=== PATIENT | female | born 1990 | race American Indian/Alaskan Native ===

== ENCOUNTER 2017-03-03 15:31 | Outpatient (CLI) | payer BC, MEDICAID ==
[2017-03-03] MEDS ORDERED: BOOSTRIX IM ONE (20:27)
--- NOTE | 2017-03-03 20:28 | Emergency Department Report ---
ED General Adult HPI - General Chief complaint: Extremity Injury, Lower Stated complaint: PAIN RT SIDE THIGH Time Seen by Provider: 03/03/17 20:16 Source: patient, RN notes reviewed Mode of arrival: Ambulatory Limitations: No Limitations - History of Present Illness Initial comments: This is a 27-year-old female. She was previously unknown to me.. MEDIA SERVICES COORDINATOR: "My MEDIA SERVICES COORDINATOR." 1, para 0, last menstrual period in September, no chronic medical conditions, up-to-date with vaccinations with the exception of tetanus, reports compliance with outpatient care. The patient presents to the ER after mechanical fall. The patient reports that she missed a stair, landed on her right hip and right elbow. She did not hit her head. She did not hit her neck. She has no extremity weakness or numbness. She has no chest pain or abdominal pain. She has no saddle anesthesia. She has no bladder or bowel retention or incontinence. She has a scrape to the right elbow. She reports that her right posterior hamstring feels like a "charley horse." The pain is achy, increases with palpation and range of motion, decreases with rest, it does not radiate anywhere. -: Sudden, hour(s) Location: right, upper extremity, lower extremity Quality: aching Consistency: intermittent Improves with: rest Worsens with: movement Associated Symptoms: denies other symptoms - Related Data Home Medications Medication Instructions Recorded Confirmed Last Taken Norgestimate-Ethinyl Estradiol 1 tab PO DAILY 07/23/15 07/23/15 07/22/15 [Sprintec 28 Day Tablet] Previous Rx's Medication Instructions Recorded Last Taken Type Naproxen [Naprosyn TAB] 500 mg PO BID PRN #12 tablet 07/23/15 Unknown Rx Sulfamethoxazole/Trimethoprim 1 each PO BID #6 tablet 07/23/15 Unknown Rx [Bactrim DS TAB] Allergies Allergy/AdvReac Type Severity Reaction Status Date / Time No Known Allergies Allergy Unverified 07/23/15 11:22 ED Review of Systems ROS: Stated complaint: PAIN RT SIDE THIGH Other details as noted in HPI Constitutional: denies: malaise Eyes: denies: vision change ENT: denies: epistaxis Respiratory: denies: cough Cardiovascular: denies: chest pain Gastrointestinal: denies: abdominal pain Genitourinary: denies: urgency Musculoskeletal: arthralgia, myalgia. denies: back pain Skin: lesions Neurological: denies: headache, weakness ED Past Medical Hx - Past Medical History Previous Medical History?: No - Social History Smoking Status: Current Some Day Smoker Substance Use Type: None - Medications Home Medications: Home Medications Medication Instructions Recorded Confirmed Last Taken Type Naproxen [Naprosyn TAB] 500 mg PO BID PRN #12 tablet 07/23/15 Unknown Rx Norgestimate-Ethinyl Estradiol 1 tab PO DAILY 07/23/15 07/23/15 07/22/15 History [Sprintec 28 Day Tablet] Sulfamethoxazole/Trimethoprim 1 each PO BID #6 tablet 07/23/15 Unknown Rx [Bactrim DS TAB] ED Physical Exam - General Limitations: No Limitations General appearance: alert, in no apparent distress - Head Head exam: Present: atraumatic, normocephalic - Eye Eye exam: Present: normal appearance, PERRL, EOMI. Absent: nystagmus - ENT ENT exam: Present: normal exam, normal orophraynx, mucous membranes moist, normal external ear exam - Neck Neck exam: Present: normal inspection, full ROM. Absent: tenderness, meningismus - Respiratory Respiratory exam: Present: normal lung sounds bilaterally. Absent: respiratory distress, wheezes, rales, rhonchi, stridor, chest wall tenderness - Cardiovascular Cardiovascular Exam: Present: regular rate, normal rhythm, normal heart sounds. Absent: bradycardia, tachycardia, irregular rhythm, systolic murmur, diastolic murmur, rubs, gallop - GI/Abdominal GI/Abdominal exam: Present: soft, normal bowel sounds. Absent: distended, tenderness, guarding, rebound, rigid, pulsatile mass - Extremities Exam Extremities exam: Present: full ROM, tenderness (there is no abrasion to the olecranon of the elbow. There is no laceration. The right elbow olecranon is minimally tender. The compartments are soft. There is full range of motion of the bilateral upper and lower extremity. There are 2+ pulses noted in the bilateral upper and lower extremities.), normal capillary refill, other (the right posterior hamstring is minimally tender. The compartments are soft. The pelvis is stable. The patient walks with a steady gait.). Absent: pedal edema , joint swelling, calf tenderness - Back Exam Back exam: Present: normal inspection, full ROM. Absent: tenderness, CVA tenderness (R), CVA tenderness (L), muscle spasm, paraspinal tenderness, vertebral tenderness - Neurological Exam Neurological exam: Present: alert, oriented X3, normal gait, other (Extraocular movements intact. Tongue midline. No facial droop. Facial sensation intact to light touch in the V1, V2, V3 distribution bilaterally. 5 and 5 strength in 4 extremities.. Sensation is intact to light touch in 4 extremities.). Absent : motor sensory deficit - Psychiatric Psychiatric exam: Present: normal affect, normal mood - Skin Skin exam: Present: warm, dry, intact, normal color. Absent: rash ED Course Vital Signs 03/03/17 16:14 Temperature 98.5 F Pulse Rate 97 H Respiratory 16 Rate Blood Pressure 109/71 O2 Sat by Pulse 100 Oximetry - Reevaluation(s) Reevaluation #1: 03/03/17 21:44 Differential diagnosis: Elbow abrasion, elbow contusion, chip fracture, incidental , mechanical fall Assessment and plan: 27-year-old female status post mild fall mechanism. She is afebrile with reassuring vital signs. She has a GCS of 15, with an NIH score of 0. She is given a tetanus vaccination. I have had an extensive discussion with the patient, and her mother. The patient and myself discussed the risks, benefits, alternatives of obtaining x-ray of the elbow. I told her that it is possible that she may have a chip fracture, but even if that were the case, the management will be expectant. The patient declines an x-ray at a concern for radiation, and I think that this is reasonable. The patient and mother are given instructions on how to care for the wound. I have then discussed the case with the meal attendant oracle security consultant, Dr. David, who accepts the patient as a transfer to labor and delivery for monitoring given mechanical fall with the examination component. The patient and her mother had all their questions answered to their satisfaction. At this point in time, there is no immediate medical contraindication to observation in the labor and delivery unit. ED Medical Decision Making - Lab Data Vital Signs 03/03/17 03/03/17 16:14 20:20 Temperature 98.5 F Pulse Rate 97 H 92 H Respiratory 16 18 Rate Blood Pressure 109/71 Blood Pressure 120/81 [Left] O2 Sat by Pulse 100 99 Oximetry Critical care attestation.: If time is entered above; I have spent that time in minutes in the direct care of this critically ill patient, excluding procedure time. ED Disposition Clinical Impression: , Fall Disposition: DISCHARGED TO HOME OR SELFCARE Is pt being admited?: No Does the pt Need Aspirin: No Condition: Good
[2017-03-03 20:58] VITALS: BP 120/81
== END 2017-03-03 22:41 | disposition home or self-care (01) ==
LOC: ED 15:31 → TRG 15:31 → EDSTATUS 21:14 → TRG 21:25
PROVIDERS: ATTEND Obstetrics & Gynecology
DX: O26.892 Other specified pregnancy related conditions, second trimester (principal); M79.651 Pain in right thigh; Z3A.23 23 weeks gestation of pregnancy
CPT/HCPCS: 59025; 90715

== ENCOUNTER 2017-03-08 09:45 | Emergency (ER) | payer MEDICAID ==
[2017-03-08 09:54] VITALS: BP 115/78
[2017-03-08] MEDS ORDERED: TYLENOL PO ONE (12:25)
--- NOTE | 2017-03-08 12:39 | Emergency Department Report ---
ED Fall HPI - General Chief Complaint: Extremity Injury, Lower Stated Complaint: SHARP PAINS IN RT BUTT CHEEK/THIGH Source: patient Mode of arrival: Ambulatory Limitations: No Limitations - History of Present Illness Initial Comments: 27 year old female presents to ED after fall 1 week ago. patient states she missed a step and fell down a couple of stairs landing on her right leg. patient was seen in ED on 03/03/2017 for same complaint and patient and ED provider agreed that imaging was unnecessary at time of visit on 03/03. Patient is 25 weeks and states that upon her previous ED visit the fetus was unharmed and doing well. patient was told to follow up with [facility] for further evaluation and for management post fall and states she has returned to ED due to needing a work excuse and right upper leg pain that has been constant after her fall. patient states that right leg pain radiates from her right thigh to her right buttock. Patient is stable, neurologically intact and in no acute distress. I have spoken with patient about the risks of radiation due to her current and patient has refused imaging and understands she needs to follow up with her [facility] on Friday when their office opens. The patient and I have spoken and agreed that imaging is unnecessary due to low clinical suspicion of any acute process including fracture or dislocation of her right leg/hip. patient will be given tylenol and work excuse in order to schedule appointment with [facility] for pain management. Patient reports no new falls, no pain in abdomen or vaginal bleeding since last ED visit. 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 denies: headache, neck pain, numbness, weakness, chest paint, shortness of breath, abdominal pain, unable to walk, lightheaded, confusion - Related Data Home Medications Medication Instructions Recorded Confirmed Last Taken Norgestimate-Ethinyl Estradiol 1 tab PO DAILY 07/23/15 07/23/15 07/22/15 [Sprintec 28 Day Tablet] Previous Rx's Medication Instructions Recorded Last Taken Type Naproxen [Naprosyn TAB] 500 mg PO BID PRN #12 tablet 07/23/15 Unknown Rx Sulfamethoxazole/Trimethoprim 1 each PO BID #6 tablet 07/23/15 Unknown Rx [Bactrim DS TAB] Allergies Allergy/AdvReac Type Severity Reaction Status Date / Time No Known Allergies Allergy Unverified 07/23/15 11:22 ED Review of Systems ROS: Stated complaint: SHARP PAINS IN RT BUTT CHEEK/THIGH Other details as noted in HPI Constitutional: denies: chills, fever Eyes: denies: eye pain, eye discharge, vision change ENT: denies: ear pain, throat pain Respiratory: denies: cough, shortness of breath, wheezing Cardiovascular: denies: chest pain, palpitations Endocrine: no symptoms reported Gastrointestinal: denies: abdominal pain, nausea, diarrhea Genitourinary: denies: urgency, dysuria, discharge Musculoskeletal: arthralgia. denies: back pain, joint swelling Skin: denies: rash, lesions Neurological: denies: headache, weakness, paresthesias Psychiatric: denies: anxiety, depression Hematological/Lymphatic: denies: easy bleeding, easy bruising ED Past Medical Hx - Past Medical History Previous Medical History?: Yes Hx Hypertension: No Hx Diabetes: No Hx Deep Vein Thrombosis: No Hx Renal Disease: No Hx Sickle Cell Disease: No Hx Seizures: No Hx Asthma: No Additional medical history: Right leg pain - Surgical History Past Surgical History?: No - Social History Smoking Status: Current Every Day Smoker Substance Use Type: Prescribed - Medications Home Medications: Home Medications Medication Instructions Recorded Confirmed Last Taken Type Naproxen [Naprosyn TAB] 500 mg PO BID PRN #12 tablet 07/23/15 Unknown Rx Norgestimate-Ethinyl Estradiol 1 tab PO DAILY 07/23/15 07/23/15 07/22/15 History [Sprintec 28 Day Tablet] Sulfamethoxazole/Trimethoprim 1 each PO BID #6 tablet 07/23/15 Unknown Rx [Bactrim DS TAB] ED Physical Exam - General Limitations: No Limitations General appearance: alert, in no apparent distress - Head Head exam: Present: atraumatic, normocephalic - Eye Eye exam: Present: normal appearance - ENT ENT exam: Present: mucous membranes moist - Neck Neck exam: Present: normal inspection - Respiratory Respiratory exam: Present: normal lung sounds bilaterally. Absent: respiratory distress - Cardiovascular Cardiovascular Exam: Present: regular rate, normal rhythm, normal heart sounds. Absent: systolic murmur, diastolic murmur, rubs, gallop - GI/Abdominal GI/Abdominal exam: Present: soft, distended, normal bowel sounds. Absent: tenderness - Extremities Exam Extremities exam: Present: normal inspection - Expanded Lower Extremity Exam Right Hip exam: Present: normal inspection, full ROM. Absent: tenderness, swelling, shortening Upper Leg exam: Present: normal inspection, full ROM. Absent: tenderness, swelling, abrasion, laceration, ecchymosis, deformity, dislocation, erythema Knee exam: Present: normal inspection, full ROM. Absent: tenderness Lower Leg exam: Present: normal inspection, full ROM. Absent: tenderness Ankle exam: Present: normal inspection, full ROM. Absent: tenderness Foot/Toe exam: Present: normal inspection, full ROM Neuro vascular tendon exam: Present: no vascular compromise Gait: Positive: observed and normal - Back Exam Back exam: Present: normal inspection, full ROM. Absent: tenderness - Neurological Exam Neurological exam: Present: alert, oriented X3, CN II-XII intact, normal gait, reflexes normal, other (normal strength bilaterally in lower extremeties) - Psychiatric Psychiatric exam: Present: normal affect, normal mood - Skin Skin exam: Present: warm, dry, intact, normal color. Absent: rash ED Course Vital Signs 03/08/17 03/08/17 03/08/17 09:49 12:49 13:18 Temperature 98.3 F Pulse Rate 100 H 87 Respiratory 20 18 Rate Blood Pressure 115/78 O2 Sat by Pulse 100 Oximetry ED Medical Decision Making - Medical Decision Making 27 year old female presents to ED post fall 1 week ago. patient was seen in ED for similar complaint on 03/03/2017 and did not recieve imaging due to risks of radiation to fetus. Patient continues to refuse imaging due to risk of radiation to fetus and states she needs work excuse to schedule appointment with her [facility]. Upon palpation with female cardiovascular specialist in room, patient has mild tenderness to gluteus trever muscle with no bruising or redness present. patient was given tylenol and had decreased pain after medication. Again I have stressed to patient that imaging is unnecessary at this time due to my belief that pain is muscoskeletal in nature. Patient will be given work excuse to follow up with [facility] next week and will continue to take tylenol for pain for safety to fetus. Patient is stable, neurologically intact and in no acute distress. Critical care attestation.: If time is entered above; I have spent that time in minutes in the direct care of this critically ill patient, excluding procedure time. ED Disposition Clinical Impression: Fall (on) (from) other stairs and steps, subsequent encounter Fall Qualifiers: Encounter type: sequela Qualified Code(s): W19.XXXS - Unspecified fall, sequela Disposition: DISCHARGED TO HOME OR SELFCARE Is pt being admited?: No Does the pt Need Aspirin: No Condition: Stable Instructions: (ED), Fall Prevention (ED) Additional Instructions: Please follow up with [facility] for pain management on Friday of next week. Referrals: HALLIE GRAY JR, MD [Primary Care Provider] - 2-3 Days Forms: Work/School Release Form(ED)
== END 2017-03-08 13:19 | disposition home or self-care (01) ==
LOC: ED 09:45
DX: O9A.212 Injury, poisoning and certain other consequences of external causes complicating pregnancy, second trimester (principal); M79.604 Pain in right leg; O99.332 Smoking (tobacco) complicating pregnancy, second trimester; Z3A.24 24 weeks gestation of pregnancy; W18.30XA Fall on same level, unspecified, initial encounter; Y93.9 Activity, unspecified; Y92.9 Unspecified place or not applicable; Y99.9 Unspecified external cause status
CPT/HCPCS: 99282

== ENCOUNTER 2017-03-25 17:05 | Outpatient (CLI) | payer MEDICAID ==
[2017-03-25] MEDS ORDERED: LACTATED RINGERS 500 ML IV ONE (17:37)
[2017-03-25 18:19] VITALS: BP 101/63
[2017-03-25 18:33] LABS: Bilirubin,Urine NEG (Negative); Blood,Urine NEG (Negative); Ketones,Urine 80 mg/dL (Negative); Leukocyte Esterase,Urine NEG (Negative); Mucus,Urine 1+ /HPF; Nitrite,Urine NEG (Negative); Protein,Urine <15 mg/dL mg/dL (Negative); RBC,Urine < 1.0 /HPF (0.0-6.0); Urobilinogen,Urine < 2.0 mg/dL (<2.0)
== END 2017-03-25 20:05 | disposition home or self-care (01) ==
LOC: TRG 17:05
PROVIDERS: ATTEND Obstetrics & Gynecology
DX: O47.02 False labor before 37 completed weeks of gestation, second trimester (principal); Z3A.27 27 weeks gestation of pregnancy
CPT/HCPCS: 59025; 81001

== ENCOUNTER 2017-05-03 08:12 | Outpatient (CLI) | payer MEDICAID ==
[2017-05-03] MEDS ORDERED: LACTATED RINGERS 500 ML IV ONE (08:26)
[2017-05-03 08:37] VITALS: BP 121/76
[2017-05-03 08:42] LABS: Urine Drugs of Abuse Note Disclamer
[2017-05-03 08:52] LABS: Bacteria,Urine 1+ /HPF (Negative); Bilirubin,Urine NEG (Negative); Blood,Urine MOD (Negative); Ketones,Urine NEG (Negative); Leukocyte Esterase,Urine LG (Negative); Nitrite,Urine NEG (Negative); Protein,Urine <15 mg/dL mg/dL (Negative); Urobilinogen,Urine < 2.0 mg/dL (<2.0)
[2017-05-03] MEDS ORDERED: MACROBID PO ONE (09:22)
[2017-05-03] MEDS ORDERED: LACTATED RINGERS 1,000 ML IV ONE (09:26)
== END 2017-05-03 10:07 | disposition home or self-care (01) ==
LOC: TRG 08:12
PROVIDERS: ATTEND Obstetrics & Gynecology
DX: O99.333 Smoking (tobacco) complicating pregnancy, third trimester (principal); Z3A.33 33 weeks gestation of pregnancy
CPT/HCPCS: 36415; 59025; 80307; 81001; 82731; 87086; 96360; 96361; J7120

== ENCOUNTER 2017-06-16 01:16 | Inpatient (IN) | payer MEDICAID ==
[2017-06-16] MEDS ORDERED: ePHEDrine SULFATE IV PRN (01:57)
[2017-06-16] MEDS ORDERED: MINERAL OIL PO PRN (01:57)
[2017-06-16] MEDS ORDERED: SUBLIMAZE IV PRN (01:57)
[2017-06-16] MEDS ORDERED: STADOL IV PRN (01:57)
[2017-06-16] MEDS ORDERED: PITOCin/NS 20 UNIT/1000ML DRIP 20 UNITS/1,000 ML BAG IV SCH ×2 (02:00→18:00)
[2017-06-16] MEDS: LACTATED RINGERS 1,000 ML IV SCH ×3 (02:15→07:33)
[2017-06-16 02:22] LABS: Hematocrit 34.6 % (30.3-42.9); Hemoglobin 11.5 gm/dl (10.1-14.3); Mean Corpuscular HGB Conc 33 % (30-34); Mean Corpuscular Hemoglobin 29 pg (28-32); Mean Corpuscular Volume 88 fl (79-97); Platelet Count 190 K/mm3 (140-440); Red Blood Count 3.95 M/mm3 (3.65-5.03); Red Cell Distribution Width 14.2 % (13.2-15.2); White Blood Count 8.7 K/mm3 (4.5-11.0)
[2017-06-16] MEDS ORDERED: PITOCin/NS 30 UNIT/500ML 30 UNITS/500 ML BAG IV SCH (06:00)
--- NOTE | 2017-06-16 06:17 | History and Physical Report ---
History of Present Illness Date of examination: 06/16/17 (pt admited for labor; having some labile BP) Date of admission: 06/16/17 02:13 History of present illness: EDC Confirmation: 06/20/2017 Gestational Age: 7 5/7 weeks Past History : 1 Past Medical History: ovarian cyst Past Surgical History: Reviewed history from 01/05/2009 and no changes required: negative Past Medical History Anesthesia Complications: negative Anemia: negative Autoimmune Disorder: negative Bleeding Disorder: negative Blood Transfusions: negative Breast Disease: negative Diabetes: negative Heart Disease: negative Hypertension: negative Hepatitis/Liver Disease: negative Kidney Disease/UTI: negative Neurologic/Epilepsy/Migraines: negative Phlebitis/Varicosities: negative Psychiatric: negative Pulmonary Disease/Asthma: negative Thyroid Disease: negative Hospitalizations: negative Surgery (Non-service order clerk): negative Abnormal PAP: negative AMANUEL Exposure: negative Infertility: negative Uterine Anomaly: negative Uterine Surgery (not C/S): negative Other Gynecologic Problems: negative Social Hx: Patient is single Smoking History: Patient currently smokes every day. Infection History Hx of STD: chlamydia HIV Risk Eval: no Hepatitis B Risk Eval: low risk Personal hx. of genital herpes: no Partner hx. of genital herpes: no Rash, Viral, or Febrile illness since last LMP? no Varicella/Chicken Pox Status: Immunized TB Risk: no Genetic History Congenital Heart Defect: Mom: no Dad: no Po Disease: Mom: no Dad: no Thalassemia Mom: no Dad: no Neural Tube Defect Mom: no Dad: no Down's Syndrome Mom: no Dad: no Adolph-Sachs Mom: no Dad: no Sickle Cell Disease/Trait Mom: no Dad: no Hemophilia Mom: no Dad: no Muscular Dystrophy Mom: no Dad: no Cystic Fibrosis Mom: no Dad: no [place] Chorea Mom: no Dad: no Mental Retardation Mom: no Dad: no Fragile X Mom: no Dad: no Other Genetic/Chromosomal Disorder Mom: no Dad: no Child w/other defect Mom: no Dad: no Enviromental Exposures Xray Exposure: no Medication, drug, or alcohol use since LMP: no Chemical/Other Exposure: no Exposure to Cat Liter: no Hx of Parvovirus (Fifth Disease): no Occupational Exposure to Children: none FALSECurrent Allergies (reviewed today): No known allergies Laboratory Results Routine Urinalysis Leukocytes: negative Nitrite: negative Urobilinogen: negative Protein: negative Blood: negative Ketone: large (80) Bilirubin: negative Glucose: negative Urine HCG: positive Review of Systems General Denies fever, chills, sweats, anorexia, fatigue, weakness, malaise, weight loss and sleep disorder. Complains of nausea, vomiting and vaginal discharge. Denies headache, swelling of legs, abdominal pain, vaginal bleeding and contractions. Denies vaginal discharge, incontinence, dysuria, hematuria, urinary frequency, amenorrhea, menorrhagia, abnormal vaginal bleeding, pelvic pain, genital sores, decreased libido, painful periods, painful sex, urinary urgency, hot flashes, vaginal dryness, vaginal itching and vaginal odor. CV Denies chest pains, palpitations, syncope, dyspnea on exertion, orthopnea, PND and peripheral edema. Resp Denies cough, dyspnea at rest, excessive sputum, hemoptysis, wheezing and pleurisy. GI Denies nausea, vomiting, diarrhea, constipation, change in bowel habits, abdominal pain, melena, hematochezia, jaundice, gas/bloating, indigestion/ heartburn, dysphagia and odynophagia. Endo Denies cold intolerance, heat intolerance, polydipsia, polyphagia, polyuria and unusual weight change. Breast Denies left breast lump, right breast lump, nipple discharge, bloody discharge from nipple, breast pain, abnormal mammogram and breast enlargement. MS Denies back pain, joint pain, joint swelling, muscle cramps, muscle weakness, stiffness, arthritis, sciatica, restless legs, leg pain at night and leg pain with exertion. Derm Denies rash, itching, dryness and suspicious lesions. Neuro Denies paralysis, paresthesias, headache, seizures, tremors, vertigo, transient blindness, frequent falls, frequent headaches and difficulty walking. Psych Denies depression, anxiety, irritability and mood swings. Eyes Denies blurring, diplopia, irritation, discharge, vision loss, eye pain and photophobia. ENT Denies earache, ear discharge, tinnitus, decreased hearing, nasal congestion, nosebleeds, sore throat and hoarseness. Allergy Denies urticaria, allergic rash, hay fever and recurrent infections. Heme Denies abnormal bruising, bleeding and enlarged lymph nodes. 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 Vulva/Vagina: No lesions, normal BUS, normal rugae Cervix: No lesions; no cervical motion tenderness Uterus: normal size and position, midline, mobile Fundal Ht: 6-8 Adnexae: no masses or tenderness Rectovaginal: no masses or tenderness Past History - Obstetrical History Expected Date of Delivery: 06/20/17 Actual Gestation: 39 Week(s) 3 Day(s) : 1 Para: 0 Number of Living Children: 0 Medications and Allergies Allergies Allergy/AdvReac Type Severity Reaction Status Date / Time No Known Allergies Allergy Verified 03/25/17 17:37 Home Medications Medication Instructions Recorded Confirmed Last Taken Type Pnv with Ca,No.72/Iron/FA 1 tab PO QDAY 06/16/17 06/16/17 2 Weeks Ago History [ Plus Tablet] Active Meds: Active Medications Butorphanol Tartrate (Stadol) 2 mg IV Q2H PRN PRN Reason: Pain , Severe (7-10) Last Admin: 06/16/17 02:40 Dose: 2 mg Fentanyl (Sublimaze) 100 mcg IV Q2H PRN PRN Reason: Labor Pain Last Admin: 06/16/17 05:53 Dose: 100 mcg Lactated Ringer's (Lactated Ringers) 1,000 mls @ 125 mls/hr IV DIRECT WINNIE Last Admin: 06/16/17 05:54 Dose: 999 mls/hr Oxytocin/Sodium Chloride (Pitocin/Ns 20 Unit/1000ml Drip) 20 units in 1,000 mls @ 125 mls/hr IV DIRECT WINNIE Oxytocin/Sodium Chloride (Pitocin/Ns 30 Unit/500ml) 30 units in 500 mls @ 4 mls /hr IV Q30MIN WINNIE; 4 MILLIUNITS/MIN PRN Reason: Protocol Mineral Oil (Mineral Oil) 30 ml PO QHS PRN PRN Reason: Constipation - Vital Signs Vital signs: Vital Signs Pulse BP 77 166/98 06/16/17 01:17 06/16/17 01:17 Temp Pulse Resp BP Pulse Ox 98.5 F 82 18 148/84 98 06/16/17 01:24 06/16/17 05:48 06/16/17 05:53 06/16/17 05:48 06/16/17 03:31 - Physical Exam Breasts: Positive: deferred Cardiovascular: Regular rate, Normal S1, Normal S2 Lungs: Positive: Normal air movement Abdomen: Positive: normal appearance, soft, normal bowel sounds. Negative: distention, tenderness Genitourinary (Female): Positive: normal external genitalia Vulva: both: normal Vagina: Positive: normal moisture. Negative: discharge Cervix: Negative: lesion, discharge Uterus: Positive: normal size, normal contour Adnexa: both: normal Anus/Rectum: Positive: normal perianal skin, heme negative. Negative: rectal mass, hemorrhoids Extremities: Positive: normal Deep Tendon Reflex Grade: Normal +2 - Obstetrical FHR: category 1 Uterine Contraction Monitor Mode: External Cervical Dilatation: 5 (per RN) Cervical Effacement Percentage: 80 station: -2 Uterine Contraction Pattern: Regular Uterine Contraction Intensity: Moderate Results Result Diagrams: 06/16/17 02:06 All other labs normal. HBsAg Screen Negative Negative *1 Rubella Antibodies, IgG 2.16 index Immune >0.99 *2 Non-immune <0.90 Equivocal 0.90 - 0.99 Immune >0.99 ABO Grouping A *3 Rh Factor Positive *4 Please note: Prior records for this patient's ABO / Rh type are not available for additional verification. Antibody Screen Negative Negative *5 RPR Non Reactive Non Reactive *6 WBC 7.0 x10E3/uL 3.4-10.8 *7 RBC 4.39 x10E6/uL 3.77-5.28 *8 Hemoglobin 12.7 g/dL 11.1-15.9 *9 Hematocrit 40.8 % 34.0-46.6 *10 MCV 93 fL 79-97 *11 MCH 28.9 pg 26.6-33.0 *12 MCHC [L] 31.1 g/dL 31.5-35.7 *13 RDW 13.3 % 12.3-15.4 *14 Platelets 286 x10E3/uL 150-379 *15 Neutrophils 62 % *16 Lymphs 27 % *17 Monocytes 10 % *18 Eos 1 % *19 Basos 0 % *20 ! Immature Cells <No Reported Value> *21 Neutrophils (Absolute) 4.2 x10E3/uL 1.4-7.0 *22 Lymphs (Absolute) 1.9 x10E3/uL 0.7-3.1 *23 Monocytes(Absolute) 0.7 x10E3/uL 0.1-0.9 *24 Eos (Absolute) 0.1 x10E3/uL 0.0-0.4 *25 Baso (Absolute) 0.0 x10E3/uL 0.0-0.2 *26 ! Immature Granulocytes 0 % *27 ! Immature Grans (Abs) 0.0 x10E3/uL 0.0-0.1 *28 ! NRBC <No Reported Value> *29 Hematology Comments: <No Reported Value> *30 Tests: (3) Hemoglobin A1c (037820) ! Hemoglobin A1c 5.2 % 4.8-5.6 *33 Pre-diabetes: 5.7 - 6.4 Diabetes: >6.4 Glycemic control for adults with diabetes: <7.0 Tests: (4) HB Solu + Rflx [facility] (309208) Hemoglobin (Hgb) Solubility Negative Negative *34 Tests: (5) Panel [id number] ([id number]) HIV Screen 4th Generation wRfx Non Reactive Non Reactive *35 Tests: (6) HCV Ab w/Rflx to Verification (172697) ! HCV Ab <0.1 s/co ratio 0.0-0.9 *36 Tests: (7) Comment: ([id number]) ! Comment: [facility] *37 Non reactive HCV antibody screen is consistent with no HCV infection, unless recent infection is suspected or other evidence exists to indicate HCV infection. Assessment and Plan 27yo @ 39 weeks with cervical chg active labor Pt has had several BPs in the 140/80-90 [facility] labs ordered GBS negative is aware of pt admission. Pt sitting up at time of note for epidural Will eval once procedure is complete. All orders in EMR.
[2017-06-16] MEDS ORDERED: ZOFRAN IV PRN (06:52)
[2017-06-16] MEDS ORDERED: NARCAN 0.4 MG/1 ML IV PRN ×2 (06:52→17:41)
[2017-06-16] MEDS ORDERED: PHENERGAN PO PRN (06:52)
[2017-06-16] MEDS ORDERED: PHENERGAN PR PRN (06:52)
--- NOTE | 2017-06-16 06:52 | Anesthesia Consultation ---
Anesthesia Consult and Med Hx Date of service: 06/16/17 - Airway Anesthetic Teeth Evaluation: Good ROM Head & Neck: Adequate Mental/Hyoid Distance: Adequate Mallampati Class: Class II Intubation Access Assessment: Good - Pulmonary Exam CTA: Yes - Cardiac Exam Cardiac Exam: No Murmur - Pre-Operative Health Status ASA Pre-Surgery Classification: ASA2 Proposed Anesthetic Plan: Epidural - Pulmonary Hx Asthma: No COPD: No Hx Pneumonia: No - Cardiovascular System Hx Hypertension: No - Central Nervous System Hx Seizures: No Hx Psychiatric Problems: No - Endocrine Hx Renal Disease: No Hx End Stage Renal Disease: No Hx Hypothyroidism: No Hx Hyperthyroidism: No - Hematic Hx Anemia: No Hx Sickle Cell Disease: No - Other Systems Hx Alcohol Use: No
--- NOTE | 2017-06-16 06:55 | Progress Note ---
Assessment and Plan Pt comfortable with epidural SVE 8-9,100,-1 BBOW Pit @ 8 mu Re-eval as needed Anticipate delivery Subjective - Subjective Date of service: 06/16/17 (comfortable with epidural) Interval history: EDC Confirmation: 06/20/2017 Gestational Age: 7 5/7 weeks Past History : 1 Past Medical History: ovarian cyst Past Surgical History: Reviewed history from 01/05/2009 and no changes required: negative Past Medical History Anesthesia Complications: negative Anemia: negative Autoimmune Disorder: negative Bleeding Disorder: negative Blood Transfusions: negative Breast Disease: negative Diabetes: negative Heart Disease: negative Hypertension: negative Hepatitis/Liver Disease: negative Kidney Disease/UTI: negative Neurologic/Epilepsy/Migraines: negative Phlebitis/Varicosities: negative Psychiatric: negative Pulmonary Disease/Asthma: negative Thyroid Disease: negative Hospitalizations: negative Surgery (Non-contact centre supervisor): negative Abnormal PAP: negative AMANUEL Exposure: negative Infertility: negative Uterine Anomaly: negative Uterine Surgery (not C/S): negative Other Gynecologic Problems: negative Social Hx: Patient is single Smoking History: Patient currently smokes every day. Infection History Hx of STD: chlamydia HIV Risk Eval: no Hepatitis B Risk Eval: low risk Personal hx. of genital herpes: no Partner hx. of genital herpes: no Rash, Viral, or Febrile illness since last LMP? no Varicella/Chicken Pox Status: Immunized TB Risk: no Genetic History Congenital Heart Defect: Mom: no Dad: no Po Disease: Mom: no Dad: no Thalassemia Mom: no Dad: no Neural Tube Defect Mom: no Dad: no Down's Syndrome Mom: no Dad: no Adolph-Sachs Mom: no Dad: no Sickle Cell Disease/Trait Mom: no Dad: no Hemophilia Mom: no Dad: no Muscular Dystrophy Mom: no Dad: no Cystic Fibrosis Mom: no Dad: no [place] Chorea Mom: no Dad: no Mental Retardation Mom: no Dad: no Fragile X Mom: no Dad: no Other Genetic/Chromosomal Disorder Mom: no Dad: no Child w/other defect Mom: no Dad: no Enviromental Exposures Xray Exposure: no Medication, drug, or alcohol use since LMP: no Chemical/Other Exposure: no Exposure to Cat Liter: no Hx of Parvovirus (Fifth Disease): no Occupational Exposure to Children: none FALSECurrent Allergies (reviewed today): No known allergies Laboratory Results Routine Urinalysis Leukocytes: negative Nitrite: negative Urobilinogen: negative Protein: negative Blood: negative Ketone: large (80) Bilirubin: negative Glucose: negative Urine HCG: positive Review of Systems General Denies fever, chills, sweats, anorexia, fatigue, weakness, malaise, weight loss and sleep disorder. Complains of nausea, vomiting and vaginal discharge. Denies headache, swelling of legs, abdominal pain, vaginal bleeding and contractions. Denies vaginal discharge, incontinence, dysuria, hematuria, urinary frequency, amenorrhea, menorrhagia, abnormal vaginal bleeding, pelvic pain, genital sores, decreased libido, painful periods, painful sex, urinary urgency, hot flashes, vaginal dryness, vaginal itching and vaginal odor. CV Denies chest pains, palpitations, syncope, dyspnea on exertion, orthopnea, PND and peripheral edema. Resp Denies cough, dyspnea at rest, excessive sputum, hemoptysis, wheezing and pleurisy. GI Denies nausea, vomiting, diarrhea, constipation, change in bowel habits, abdominal pain, melena, hematochezia, jaundice, gas/bloating, indigestion/ heartburn, dysphagia and odynophagia. Endo Denies cold intolerance, heat intolerance, polydipsia, polyphagia, polyuria and unusual weight change. Breast Denies left breast lump, right breast lump, nipple discharge, bloody discharge from nipple, breast pain, abnormal mammogram and breast enlargement. MS Denies back pain, joint pain, joint swelling, muscle cramps, muscle weakness, stiffness, arthritis, sciatica, restless legs, leg pain at night and leg pain with exertion. Derm Denies rash, itching, dryness and suspicious lesions. Neuro Denies paralysis, paresthesias, headache, seizures, tremors, vertigo, transient blindness, frequent falls, frequent headaches and difficulty walking. Psych Denies depression, anxiety, irritability and mood swings. Eyes Denies blurring, diplopia, irritation, discharge, vision loss, eye pain and photophobia. ENT Denies earache, ear discharge, tinnitus, decreased hearing, nasal congestion, nosebleeds, sore throat and hoarseness. Allergy Denies urticaria, allergic rash, hay fever and recurrent infections. Heme Denies abnormal bruising, bleeding and enlarged lymph nodes. 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 Vulva/Vagina: No lesions, normal BUS, normal rugae Cervix: No lesions; no cervical motion tenderness Uterus: normal size and position, midline, mobile Fundal Ht: 6-8 Adnexae: no masses or tenderness Rectovaginal: no masses or tenderness Patient reports: movement normal Objective - Vital Signs Vital Signs: Vital Signs - 12hr 06/16/17 06/16/17 06/16/17 01:17 01:20 01:22 Temperature Pulse Rate 77 82 83 Respiratory Rate Blood Pressure 166/98 148/85 O2 Sat by Pulse 98 Oximetry 06/16/17 06/16/17 06/16/17 01:24 01:26 01:32 Temperature 98.5 F Pulse Rate 76 85 Respiratory 22 Rate Blood Pressure O2 Sat by Pulse 98 94 Oximetry 06/16/17 06/16/17 06/16/17 01:36 01:37 01:40 Temperature Pulse Rate 91 H 94 H 83 Respiratory Rate Blood Pressure 144/102 O2 Sat by Pulse 96 83 L Oximetry 06/16/17 06/16/17 06/16/17 01:42 01:47 01:51 Temperature Pulse Rate 81 77 84 Respiratory Rate Blood Pressure O2 Sat by Pulse 96 97 98 Oximetry 06/16/17 06/16/17 06/16/17 01:52 01:53 01:56 Temperature Pulse Rate 80 81 94 H Respiratory Rate Blood Pressure 143/85 O2 Sat by Pulse 92 96 Oximetry 06/16/17 06/16/17 06/16/17 02:02 02:06 02:12 Temperature Pulse Rate 89 90 82 Respiratory Rate Blood Pressure O2 Sat by Pulse 99 97 99 Oximetry 06/16/17 06/16/17 06/16/17 02:17 02:31 02:36 Temperature Pulse Rate 93 H 78 86 Respiratory Rate Blood Pressure O2 Sat by Pulse 100 99 99 Oximetry 06/16/17 06/16/17 06/16/17 02:40 02:41 02:46 Temperature Pulse Rate 83 83 Respiratory 22 Rate Blood Pressure 142/93 O2 Sat by Pulse 100 99 Oximetry 06/16/17 06/16/17 06/16/17 02:48 02:51 02:56 Temperature Pulse Rate 78 69 79 Respiratory Rate Blood Pressure 149/96 O2 Sat by Pulse 99 97 Oximetry 06/16/17 06/16/17 06/16/17 03:01 03:04 03:05 Temperature Pulse Rate 79 73 68 Respiratory Rate Blood Pressure 129/75 O2 Sat by Pulse 97 92 Oximetry 06/16/17 06/16/17 06/16/17 03:06 03:10 03:11 Temperature Pulse Rate 69 68 Respiratory 20 Rate Blood Pressure O2 Sat by Pulse 98 98 Oximetry 06/16/17 06/16/17 06/16/17 03:16 03:18 03:21 Temperature Pulse Rate 66 71 80 Respiratory Rate Blood Pressure 138/84 O2 Sat by Pulse 99 95 Oximetry 06/16/17 06/16/17 06/16/17 03:26 03:31 03:33 Temperature Pulse Rate 78 72 74 Respiratory Rate Blood Pressure 119/74 O2 Sat by Pulse 97 98 Oximetry 06/16/17 06/16/17 06/16/17 03:48 04:04 04:19 Temperature Pulse Rate 69 65 67 Respiratory Rate Blood Pressure 147/97 148/90 174/106 O2 Sat by Pulse Oximetry 06/16/17 06/16/17 06/16/17 04:33 04:41 04:44 Temperature Pulse Rate 83 72 62 Respiratory Rate Blood Pressure 133/96 169/90 150/89 O2 Sat by Pulse Oximetry 06/16/17 06/16/17 06/16/17 04:46 04:48 05:04 Temperature Pulse Rate 63 60 70 Respiratory Rate Blood Pressure 148/68 143/74 150/93 O2 Sat by Pulse Oximetry 06/16/17 06/16/17 06/16/17 05:14 05:48 05:53 Temperature Pulse Rate 71 82 Respiratory 18 Rate Blood Pressure 146/86 148/84 O2 Sat by Pulse Oximetry 06/16/17 06/16/17 06/16/17 06:15 06:27 06:29 Temperature Pulse Rate 81 81 80 Respiratory Rate Blood Pressure 154/82 149/84 137/88 O2 Sat by Pulse Oximetry 06/16/17 06/16/17 06/16/17 06:31 06:32 06:33 Temperature Pulse Rate 79 61 84 Respiratory Rate Blood Pressure 139/70 141/83 O2 Sat by Pulse 100 86 Oximetry 06/16/17 06/16/17 06/16/17 06:35 06:36 06:37 Temperature Pulse Rate 80 76 88 Respiratory Rate Blood Pressure 146/92 150/88 O2 Sat by Pulse 100 Oximetry 06/16/17 06/16/17 06/16/17 06:39 06:41 06:43 Temperature Pulse Rate 105 H 99 H 93 H Respiratory Rate Blood Pressure 155/90 160/84 142/75 O2 Sat by Pulse 99 Oximetry 06/16/17 06/16/17 06/16/17 06:46 06:47 06:49 Temperature Pulse Rate 71 77 Respiratory Rate Blood Pressure 153/94 130/80 O2 Sat by Pulse 72 L 100 Oximetry - Exam Breasts: deferred Cardiovascular: Regular rate Lungs: Normal air movement Abdomen: Present: normal appearance, soft. Absent: distention, tenderness Uterus: Present: normal FHR: auscultation normal Uterine Contraction Monitor Mode: External Cervical Dilatation: 8.5 (BBOW) Cervical Effacement Percentage: 100 station: -1 Uterine Contraction Pattern: Regular Uterine Contraction Intensity: Moderate Extremities: normal Deep Tendon Reflex Grade: Normal +2 - Labs Labs: Laboratory Results - last 24 hr 06/16/17 06/16/17 02:06 02:06 WBC 8.7 RBC 3.95 Hgb 11.5 Hct 34.6 MCV 88 MCH 29 MCHC 33 RDW 14.2 Plt Count 190 Blood Type A POSITIVE Antibody Screen Negative
[2017-06-16] MEDS ORDERED: fentaNYL-BUPIV 2 MCG/ML-0.125% 200 MCG/100 ML BAG EPIDURAL SCH (07:00)
[2017-06-16] MEDS ORDERED: SODIUM CHLORIDE FLUSH SYRINGE 10 ML IV NR (07:00)
[2017-06-16 07:33] LABS: Bacteria,Urine 1+ /HPF (Negative); Bilirubin,Urine NEG (Negative); Blood,Urine MOD (Negative); Ketones,Urine 20 mg/dL (Negative); Leukocyte Esterase,Urine TR (Negative); Nitrite,Urine NEG (Negative); Protein,Urine <15 mg/dL mg/dL (Negative); RBC,Urine < 1.0 /HPF (0.0-6.0); Urobilinogen,Urine < 2.0 mg/dL (<2.0)
[2017-06-16 07:34] LABS: Alanine Aminotransferase 9 units/L (7-56); Lactate Dehydrogenase 143 units/L (91-180); Uric Acid 4.5 mg/dL (3.5-7.6)
--- NOTE | 2017-06-16 07:37 | Progress Note ---
Assessment and Plan pt comfortable with epidural SROM clear fluid SVE 9,C,0 PreE labs wnl Pt in semifowlers Anticipate delivery Subjective - Subjective Date of service: 06/16/17 (SROM clear) Interval history: EDC Confirmation: 06/20/2017 Gestational Age: 7 5/7 weeks Past History : 1 Past Medical History: ovarian cyst Past Surgical History: Reviewed history from 01/05/2009 and no changes required: negative Past Medical History Anesthesia Complications: negative Anemia: negative Autoimmune Disorder: negative Bleeding Disorder: negative Blood Transfusions: negative Breast Disease: negative Diabetes: negative Heart Disease: negative Hypertension: negative Hepatitis/Liver Disease: negative Kidney Disease/UTI: negative Neurologic/Epilepsy/Migraines: negative Phlebitis/Varicosities: negative Psychiatric: negative Pulmonary Disease/Asthma: negative Thyroid Disease: negative Hospitalizations: negative 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 Infection History Hx of STD: chlamydia HIV Risk Eval: no Hepatitis B Risk Eval: low risk Personal hx. of genital herpes: no Partner hx. of genital herpes: no Rash, Viral, or Febrile illness since last LMP? no Varicella/Chicken Pox Status: Immunized TB Risk: no Genetic History Congenital Heart Defect: Mom: no Dad: no Po Disease: Mom: no Dad: no Thalassemia Mom: no Dad: no Neural Tube Defect Mom: no Dad: no Down's Syndrome Mom: no Dad: no Adolph-Sachs Mom: no Dad: no Sickle Cell Disease/Trait Mom: no Dad: no Hemophilia Mom: no Dad: no Muscular Dystrophy Mom: no Dad: no Cystic Fibrosis Mom: no Dad: no Ramsey Chorea Mom: no Dad: no Mental Retardation Mom: no Dad: no Fragile X Mom: no Dad: no Other Genetic/Chromosomal Disorder Mom: no Dad: no Child w/other defect Mom: no Dad: no Enviromental Exposures Xray Exposure: no Medication, drug, or alcohol use since LMP: no Chemical/Other Exposure: no Exposure to Cat Liter: no Hx of Parvovirus (Fifth Disease): no Occupational Exposure to Children: none FALSECurrent Allergies (reviewed today): No known allergies Laboratory Results Routine Urinalysis Leukocytes: negative Nitrite: negative Urobilinogen: negative Protein: negative Blood: negative Ketone: large (80) Bilirubin: negative Glucose: negative Urine HCG: positive Review of Systems General Denies fever, chills, sweats, anorexia, fatigue, weakness, malaise, weight loss and sleep disorder. Complains of nausea, vomiting and vaginal discharge. Denies headache, swelling of legs, abdominal pain, vaginal bleeding and contractions. Denies vaginal discharge, incontinence, dysuria, hematuria, urinary frequency, amenorrhea, menorrhagia, abnormal vaginal bleeding, pelvic pain, genital sores, decreased libido, painful periods, painful sex, urinary urgency, hot flashes, vaginal dryness, vaginal itching and vaginal odor. CV Denies chest pains, palpitations, syncope, dyspnea on exertion, orthopnea, PND and peripheral edema. Resp Denies cough, dyspnea at rest, excessive sputum, hemoptysis, wheezing and pleurisy. GI Denies nausea, vomiting, diarrhea, constipation, change in bowel habits, abdominal pain, melena, hematochezia, jaundice, gas/bloating, indigestion/ heartburn, dysphagia and odynophagia. Endo Denies cold intolerance, heat intolerance, polydipsia, polyphagia, polyuria and unusual weight change. Breast Denies left breast lump, right breast lump, nipple discharge, bloody discharge from nipple, breast pain, abnormal mammogram and breast enlargement. MS Denies back pain, joint pain, joint swelling, muscle cramps, muscle weakness, stiffness, arthritis, sciatica, restless legs, leg pain at night and leg pain with exertion. Derm Denies rash, itching, dryness and suspicious lesions. Neuro Denies paralysis, paresthesias, headache, seizures, tremors, vertigo, transient blindness, frequent falls, frequent headaches and difficulty walking. Psych Denies depression, anxiety, irritability and mood swings. Eyes Denies blurring, diplopia, irritation, discharge, vision loss, eye pain and photophobia. ENT Denies earache, ear discharge, tinnitus, decreased hearing, nasal congestion, nosebleeds, sore throat and hoarseness. Allergy Denies urticaria, allergic rash, hay fever and recurrent infections. Heme Denies abnormal bruising, bleeding and enlarged lymph nodes. 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 Vulva/Vagina: No lesions, normal BUS, normal rugae Cervix: No lesions; no cervical motion tenderness Uterus: normal size and position, midline, mobile Fundal Ht: 6-8 Adnexae: no masses or tenderness Rectovaginal: no masses or tenderness Patient reports: movement normal Objective - Vital Signs Vital Signs: Vital Signs - 12hr 06/16/17 06/16/17 06/16/17 01:17 01:20 01:22 Temperature Pulse Rate 77 82 83 Respiratory Rate Blood Pressure 166/98 148/85 O2 Sat by Pulse 98 Oximetry 06/16/17 06/16/17 06/16/17 01:24 01:26 01:32 Temperature 98.5 F Pulse Rate 76 85 Respiratory 22 Rate Blood Pressure O2 Sat by Pulse 98 94 Oximetry 06/16/17 06/16/17 06/16/17 01:36 01:37 01:40 Temperature Pulse Rate 91 H 94 H 83 Respiratory Rate Blood Pressure 144/102 O2 Sat by Pulse 96 83 L Oximetry 06/16/17 06/16/17 06/16/17 01:42 01:47 01:51 Temperature Pulse Rate 81 77 84 Respiratory Rate Blood Pressure O2 Sat by Pulse 96 97 98 Oximetry 06/16/17 06/16/17 06/16/17 01:52 01:53 01:56 Temperature Pulse Rate 80 81 94 H Respiratory Rate Blood Pressure 143/85 O2 Sat by Pulse 92 96 Oximetry 06/16/17 06/16/17 06/16/17 02:02 02:06 02:12 Temperature Pulse Rate 89 90 82 Respiratory Rate Blood Pressure O2 Sat by Pulse 99 97 99 Oximetry 06/16/17 06/16/17 06/16/17 02:17 02:31 02:36 Temperature Pulse Rate 93 H 78 86 Respiratory Rate Blood Pressure O2 Sat by Pulse 100 99 99 Oximetry 06/16/17 06/16/17 06/16/17 02:40 02:41 02:46 Temperature Pulse Rate 83 83 Respiratory 22 Rate Blood Pressure 142/93 O2 Sat by Pulse 100 99 Oximetry 06/16/17 06/16/17 06/16/17 02:48 02:51 02:56 Temperature Pulse Rate 78 69 79 Respiratory Rate Blood Pressure 149/96 O2 Sat by Pulse 99 97 Oximetry 06/16/17 06/16/17 06/16/17 03:01 03:04 03:05 Temperature Pulse Rate 79 73 68 Respiratory Rate Blood Pressure 129/75 O2 Sat by Pulse 97 92 Oximetry 06/16/17 06/16/17 06/16/17 03:06 03:10 03:11 Temperature Pulse Rate 69 68 Respiratory 20 Rate Blood Pressure O2 Sat by Pulse 98 98 Oximetry 06/16/17 06/16/17 06/16/17 03:16 03:18 03:21 Temperature Pulse Rate 66 71 80 Respiratory Rate Blood Pressure 138/84 O2 Sat by Pulse 99 95 Oximetry 06/16/17 06/16/17 06/16/17 03:26 03:31 03:33 Temperature Pulse Rate 78 72 74 Respiratory Rate Blood Pressure 119/74 O2 Sat by Pulse 97 98 Oximetry 06/16/17 06/16/17 06/16/17 03:48 04:04 04:19 Temperature Pulse Rate 69 65 67 Respiratory Rate Blood Pressure 147/97 148/90 174/106 O2 Sat by Pulse Oximetry 06/16/17 06/16/17 06/16/17 04:33 04:41 04:44 Temperature Pulse Rate 83 72 62 Respiratory Rate Blood Pressure 133/96 169/90 150/89 O2 Sat by Pulse Oximetry 06/16/17 06/16/17 06/16/17 04:46 04:48 05:04 Temperature Pulse Rate 63 60 70 Respiratory Rate Blood Pressure 148/68 143/74 150/93 O2 Sat by Pulse Oximetry 06/16/17 06/16/17 06/16/17 05:14 05:48 05:53 Temperature Pulse Rate 71 82 Respiratory 18 Rate Blood Pressure 146/86 148/84 O2 Sat by Pulse Oximetry 06/16/17 06/16/17 06/16/17 06:15 06:27 06:29 Temperature Pulse Rate 81 81 80 Respiratory Rate Blood Pressure 154/82 149/84 137/88 O2 Sat by Pulse Oximetry 06/16/17 06/16/17 06/16/17 06:31 06:32 06:33 Temperature Pulse Rate 79 61 84 Respiratory Rate Blood Pressure 139/70 141/83 O2 Sat by Pulse 100 86 Oximetry 06/16/17 06/16/17 06/16/17 06:35 06:36 06:37 Temperature Pulse Rate 80 76 88 Respiratory Rate Blood Pressure 146/92 150/88 O2 Sat by Pulse 100 Oximetry 06/16/17 06/16/17 06/16/17 06:39 06:41 06:43 Temperature Pulse Rate 105 H 99 H 93 H Respiratory Rate Blood Pressure 155/90 160/84 142/75 O2 Sat by Pulse 99 Oximetry 06/16/17 06/16/17 06/16/17 06:46 06:47 06:49 Temperature Pulse Rate 71 77 Respiratory Rate Blood Pressure 153/94 130/80 O2 Sat by Pulse 72 L 100 Oximetry 06/16/17 06/16/17 06/16/17 06:51 06:52 06:53 Temperature Pulse Rate 81 108 H 99 H Respiratory Rate Blood Pressure 138/81 143/87 O2 Sat by Pulse 100 Oximetry 06/16/17 06/16/17 06/16/17 06:57 06:59 07:01 Temperature Pulse Rate 83 85 94 H Respiratory Rate Blood Pressure 158/88 O2 Sat by Pulse 100 87 Oximetry 06/16/17 06/16/17 06/16/17 07:02 07:07 07:12 Temperature Pulse Rate 99 H 78 81 Respiratory Rate Blood Pressure O2 Sat by Pulse 100 100 100 Oximetry 06/16/17 06/16/17 06/16/17 07:17 07:18 07:22 Temperature Pulse Rate 82 78 99 H Respiratory Rate Blood Pressure 138/81 O2 Sat by Pulse 100 100 Oximetry 06/16/17 06/16/17 07:27 07:32 Temperature Pulse Rate 78 88 Respiratory Rate Blood Pressure 139/87 O2 Sat by Pulse 100 100 Oximetry - Exam Breasts: deferred Cardiovascular: Regular rate Lungs: Normal air movement Abdomen: Present: normal appearance, soft. Absent: distention, tenderness Uterus: Present: normal FHR: auscultation normal, category 1 Uterine Contraction Monitor Mode: External Cervical Dilatation: 9 (srom clear) Cervical Effacement Percentage: 100 station: 0 Uterine Contraction Pattern: Regular Uterine Tone Measurement Phase: Resting Uterine Contraction Intensity: Moderate Extremities: edema Deep Tendon Reflex Grade: Normal +2 - Labs Labs: Abnormal Labs 06/16/17 06:53 Creatinine 0.5 L Laboratory Results - last 24 hr 06/16/17 06/16/17 06/16/17 02:06 02:06 06:50 WBC 8.7 RBC 3.95 Hgb 11.5 Hct 34.6 MCV 88 MCH 29 MCHC 33 RDW 14.2 Plt Count 190 Creatinine Estimated GFR Uric Acid AST ALT Lactate Dehydrogenase Urine Bilirubin Neg Urine RBC (Auto) < 1.0 U Epithel Cells (Auto) 1.0 Blood Type A POSITIVE Antibody Screen Negative 06/16/17 06:53 WBC RBC Hgb Hct MCV MCH MCHC RDW Plt Count Creatinine 0.5 L Estimated GFR > 60 Uric Acid 4.5 AST 14 ALT 9 Lactate Dehydrogenase 143 Urine Bilirubin Urine RBC (Auto) U Epithel Cells (Auto) Blood Type Antibody Screen
--- NOTE | 2017-06-16 10:14 | Progress Note ---
Assessment and Plan Pt remains @ 9cm OP presentation Pt @ 8mu made aware FHT Category 1 ISE applied. Subjective - Subjective Date of service: 06/16/17 Interval history: EDC Confirmation: 06/20/2017 Gestational Age: 7 5/7 weeks Past History : 1 Past Medical History: ovarian cyst Past Surgical History: Reviewed history from 01/05/2009 and no changes required: negative Past Medical History Anesthesia Complications: negative Anemia: negative Autoimmune Disorder: negative Bleeding Disorder: negative Blood Transfusions: negative Breast Disease: negative Diabetes: negative Heart Disease: negative Hypertension: negative Hepatitis/Liver Disease: negative Kidney Disease/UTI: negative Neurologic/Epilepsy/Migraines: negative Phlebitis/Varicosities: negative Psychiatric: negative Pulmonary Disease/Asthma: negative Thyroid Disease: negative Hospitalizations: negative 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 Infection History Hx of STD: chlamydia HIV Risk Eval: no Hepatitis B Risk Eval: low risk Personal hx. of genital herpes: no Partner hx. of genital herpes: no Rash, Viral, or Febrile illness since last LMP? no Varicella/Chicken Pox Status: Immunized TB Risk: no Genetic History Congenital Heart Defect: Mom: no Dad: no Po Disease: Mom: no Dad: no Thalassemia Mom: no Dad: no Neural Tube Defect Mom: no Dad: no Down's Syndrome Mom: no Dad: no Adolph-Sachs Mom: no Dad: no Sickle Cell Disease/Trait Mom: no Dad: no Hemophilia Mom: no Dad: no Muscular Dystrophy Mom: no Dad: no Cystic Fibrosis Mom: no Dad: no Davey Chorea Mom: no Dad: no Mental Retardation Mom: no Dad: no Fragile X Mom: no Dad: no Other Genetic/Chromosomal Disorder Mom: no Dad: no Child w/other defect Mom: no Dad: no Enviromental Exposures Xray Exposure: no Medication, drug, or alcohol use since LMP: no Chemical/Other Exposure: no Exposure to Cat Liter: no Hx of Parvovirus (Fifth Disease): no Occupational Exposure to Children: none FALSECurrent Allergies (reviewed today): No known allergies Laboratory Results Routine Urinalysis Leukocytes: negative Nitrite: negative Urobilinogen: negative Protein: negative Blood: negative Ketone: large (80) Bilirubin: negative Glucose: negative Urine HCG: positive Review of Systems General Denies fever, chills, sweats, anorexia, fatigue, weakness, malaise, weight loss and sleep disorder. Complains of nausea, vomiting and vaginal discharge. Denies headache, swelling of legs, abdominal pain, vaginal bleeding and contractions. Denies vaginal discharge, incontinence, dysuria, hematuria, urinary frequency, amenorrhea, menorrhagia, abnormal vaginal bleeding, pelvic pain, genital sores, decreased libido, painful periods, painful sex, urinary urgency, hot flashes, vaginal dryness, vaginal itching and vaginal odor. CV Denies chest pains, palpitations, syncope, dyspnea on exertion, orthopnea, PND and peripheral edema. Resp Denies cough, dyspnea at rest, excessive sputum, hemoptysis, wheezing and pleurisy. GI Denies nausea, vomiting, diarrhea, constipation, change in bowel habits, abdominal pain, melena, hematochezia, jaundice, gas/bloating, indigestion/ heartburn, dysphagia and odynophagia. Endo Denies cold intolerance, heat intolerance, polydipsia, polyphagia, polyuria and unusual weight change. Breast Denies left breast lump, right breast lump, nipple discharge, bloody discharge from nipple, breast pain, abnormal mammogram and breast enlargement. MS Denies back pain, joint pain, joint swelling, muscle cramps, muscle weakness, stiffness, arthritis, sciatica, restless legs, leg pain at night and leg pain with exertion. Derm Denies rash, itching, dryness and suspicious lesions. Neuro Denies paralysis, paresthesias, headache, seizures, tremors, vertigo, transient blindness, frequent falls, frequent headaches and difficulty walking. Psych Denies depression, anxiety, irritability and mood swings. Eyes Denies blurring, diplopia, irritation, discharge, vision loss, eye pain and photophobia. ENT Denies earache, ear discharge, tinnitus, decreased hearing, nasal congestion, nosebleeds, sore throat and hoarseness. Allergy Denies urticaria, allergic rash, hay fever and recurrent infections. Heme Denies abnormal bruising, bleeding and enlarged lymph nodes. PHYSICAL EXAM HEENT: PERRLA, normal conjunctiva, external nose and nasal mucosa normal, oropharynx clear Neck/Thyroid: supple, thyroid normal Skin no significant abnormal lesions or rashes Chest: respiratory effort normal, clear to auscultation Breasts: normal without skin changes or masses CV: regular, normal S1-S2, no murmur, no rub, no gallop Abdomen: normal bowel sounds, soft, nontender, no HSM Musculoskeletal: grossly normal ROM in joints, no joint tenderness or muscle weakness Neuro: grossly normal DTRs, sensation, strength, cranial nerves Extremities: no clubbing, cyanosis, or edema RN OR LVN Exams Vulva/Vagina: No lesions, normal BUS, normal rugae Cervix: No lesions; no cervical motion tenderness Uterus: normal size and position, midline, mobile Fundal Ht: 6-8 Adnexae: no masses or tenderness Rectovaginal: no masses or tenderness Patient reports: movement normal Objective - Vital Signs Vital Signs: Vital Signs - 12hr 06/16/17 06/16/17 06/16/17 01:17 01:20 01:22 Temperature Pulse Rate 77 82 83 Respiratory Rate Blood Pressure 166/98 148/85 O2 Sat by Pulse 98 Oximetry 06/16/17 06/16/17 06/16/17 01:24 01:26 01:32 Temperature 98.5 F Pulse Rate 76 85 Respiratory 22 Rate Blood Pressure O2 Sat by Pulse 98 94 Oximetry 06/16/17 06/16/17 06/16/17 01:36 01:37 01:40 Temperature Pulse Rate 91 H 94 H 83 Respiratory Rate Blood Pressure 144/102 O2 Sat by Pulse 96 83 L Oximetry 06/16/17 06/16/17 06/16/17 01:42 01:47 01:51 Temperature Pulse Rate 81 77 84 Respiratory Rate Blood Pressure O2 Sat by Pulse 96 97 98 Oximetry 06/16/17 06/16/17 06/16/17 01:52 01:53 01:56 Temperature Pulse Rate 80 81 94 H Respiratory Rate Blood Pressure 143/85 O2 Sat by Pulse 92 96 Oximetry 06/16/17 06/16/17 06/16/17 02:02 02:06 02:12 Temperature Pulse Rate 89 90 82 Respiratory Rate Blood Pressure O2 Sat by Pulse 99 97 99 Oximetry 06/16/17 06/16/17 06/16/17 02:17 02:31 02:36 Temperature Pulse Rate 93 H 78 86 Respiratory Rate Blood Pressure O2 Sat by Pulse 100 99 99 Oximetry 06/16/17 06/16/17 06/16/17 02:40 02:41 02:46 Temperature Pulse Rate 83 83 Respiratory 22 Rate Blood Pressure 142/93 O2 Sat by Pulse 100 99 Oximetry 06/16/17 06/16/17 06/16/17 02:48 02:51 02:56 Temperature Pulse Rate 78 69 79 Respiratory Rate Blood Pressure 149/96 O2 Sat by Pulse 99 97 Oximetry 06/16/17 06/16/17 06/16/17 03:01 03:04 03:05 Temperature Pulse Rate 79 73 68 Respiratory Rate Blood Pressure 129/75 O2 Sat by Pulse 97 92 Oximetry 06/16/17 06/16/17 06/16/17 03:06 03:10 03:11 Temperature Pulse Rate 69 68 Respiratory 20 Rate Blood Pressure O2 Sat by Pulse 98 98 Oximetry 06/16/17 06/16/17 06/16/17 03:16 03:18 03:21 Temperature Pulse Rate 66 71 80 Respiratory Rate Blood Pressure 138/84 O2 Sat by Pulse 99 95 Oximetry 06/16/17 06/16/17 06/16/17 03:26 03:31 03:33 Temperature Pulse Rate 78 72 74 Respiratory Rate Blood Pressure 119/74 O2 Sat by Pulse 97 98 Oximetry 06/16/17 06/16/17 06/16/17 03:48 04:04 04:19 Temperature Pulse Rate 69 65 67 Respiratory Rate Blood Pressure 147/97 148/90 174/106 O2 Sat by Pulse Oximetry 06/16/17 06/16/17 06/16/17 04:33 04:41 04:44 Temperature Pulse Rate 83 72 62 Respiratory Rate Blood Pressure 133/96 169/90 150/89 O2 Sat by Pulse Oximetry 06/16/17 06/16/17 06/16/17 04:46 04:48 05:04 Temperature Pulse Rate 63 60 70 Respiratory Rate Blood Pressure 148/68 143/74 150/93 O2 Sat by Pulse Oximetry 06/16/17 06/16/17 06/16/17 05:14 05:48 05:53 Temperature Pulse Rate 71 82 Respiratory 18 Rate Blood Pressure 146/86 148/84 O2 Sat by Pulse Oximetry 06/16/17 06/16/17 06/16/17 06:15 06:27 06:29 Temperature Pulse Rate 81 81 80 Respiratory Rate Blood Pressure 154/82 149/84 137/88 O2 Sat by Pulse Oximetry 06/16/17 06/16/17 06/16/17 06:31 06:32 06:33 Temperature Pulse Rate 79 61 84 Respiratory Rate Blood Pressure 139/70 141/83 O2 Sat by Pulse 100 86 Oximetry 06/16/17 06/16/17 06/16/17 06:35 06:36 06:37 Temperature Pulse Rate 80 76 88 Respiratory Rate Blood Pressure 146/92 150/88 O2 Sat by Pulse 100 Oximetry 06/16/17 06/16/17 06/16/17 06:39 06:41 06:43 Temperature Pulse Rate 105 H 99 H 93 H Respiratory Rate Blood Pressure 155/90 160/84 142/75 O2 Sat by Pulse 99 Oximetry 06/16/17 06/16/17 06/16/17 06:46 06:47 06:49 Temperature Pulse Rate 71 77 Respiratory Rate Blood Pressure 153/94 130/80 O2 Sat by Pulse 72 L 100 Oximetry 06/16/17 06/16/17 06/16/17 06:51 06:52 06:53 Temperature Pulse Rate 81 108 H 99 H Respiratory Rate Blood Pressure 138/81 143/87 O2 Sat by Pulse 100 Oximetry 06/16/17 06/16/17 06/16/17 06:57 06:59 07:01 Temperature Pulse Rate 83 85 94 H Respiratory Rate Blood Pressure 158/88 O2 Sat by Pulse 100 87 Oximetry 06/16/17 06/16/17 06/16/17 07:02 07:07 07:12 Temperature Pulse Rate 99 H 78 81 Respiratory Rate Blood Pressure O2 Sat by Pulse 100 100 100 Oximetry 06/16/17 06/16/17 06/16/17 07:17 07:18 07:22 Temperature Pulse Rate 82 78 99 H Respiratory Rate Blood Pressure 138/81 O2 Sat by Pulse 100 100 Oximetry 06/16/17 06/16/17 06/16/17 07:27 07:32 07:37 Temperature Pulse Rate 78 88 78 Respiratory Rate Blood Pressure 139/87 O2 Sat by Pulse 100 100 99 Oximetry 06/16/17 06/16/17 06/16/17 07:40 07:42 07:46 Temperature Pulse Rate 72 85 85 Respiratory Rate Blood Pressure 144/84 145/79 O2 Sat by Pulse 100 Oximetry 06/16/17 06/16/17 06/16/17 07:47 07:52 07:57 Temperature Pulse Rate 84 71 77 Respiratory Rate Blood Pressure O2 Sat by Pulse 100 100 99 Oximetry 06/16/17 06/16/17 06/16/17 08:02 08:03 08:04 Temperature Pulse Rate 77 86 84 Respiratory Rate Blood Pressure 138/99 136/83 O2 Sat by Pulse 100 Oximetry 06/16/17 06/16/17 06/16/17 08:07 08:12 08:17 Temperature Pulse Rate 77 77 92 H Respiratory Rate Blood Pressure O2 Sat by Pulse 99 100 100 Oximetry 06/16/17 06/16/17 06/16/17 08:20 08:22 08:26 Temperature Pulse Rate 86 88 89 Respiratory Rate Blood Pressure 124/72 O2 Sat by Pulse 100 100 Oximetry 06/16/17 06/16/17 06/16/17 08:32 08:37 08:41 Temperature 97.2 F L Pulse Rate 80 68 87 Respiratory 18 Rate Blood Pressure 152/90 136/83 O2 Sat by Pulse 100 100 Oximetry 06/16/17 06/16/17 06/16/17 08:42 08:47 08:51 Temperature Pulse Rate 69 74 104 H Respiratory Rate Blood Pressure 141/84 O2 Sat by Pulse 99 99 Oximetry 06/16/17 06/16/17 06/16/17 08:52 09:05 09:40 Temperature Pulse Rate 92 H 78 73 Respiratory Rate Blood Pressure 123/79 O2 Sat by Pulse 100 99 Oximetry 06/16/17 06/16/17 06/16/17 09:45 09:50 09:55 Temperature Pulse Rate 81 76 66 Respiratory Rate Blood Pressure 161/79 O2 Sat by Pulse 100 100 100 Oximetry 06/16/17 06/16/17 10:00 10:05 Temperature Pulse Rate 69 71 Respiratory Rate Blood Pressure 133/65 O2 Sat by Pulse 100 100 Oximetry - Exam Cardiovascular: Regular rate Lungs: Normal air movement Abdomen: Present: normal appearance, soft. Absent: distention, tenderness Uterus: Present: normal FHR: auscultation normal Uterine Contraction Monitor Mode: Internal Cervical Dilatation: 9 (ISE applied) Cervical Effacement Percentage: 100 (OP; maternal position chges) station: -2 Uterine Contraction Pattern: Regular Uterine Contraction Intensity: Moderate Extremities: normal Deep Tendon Reflex Grade: Normal +2 - Labs Labs: Abnormal Labs 06/16/17 06:53 Creatinine 0.5 L Laboratory Results - last 24 hr 06/16/17 06/16/17 06/16/17 02:06 02:06 06:50 WBC 8.7 RBC 3.95 Hgb 11.5 Hct 34.6 MCV 88 MCH 29 MCHC 33 RDW 14.2 Plt Count 190 Creatinine Estimated GFR Uric Acid AST ALT Lactate Dehydrogenase Urine Color Straw Urine Turbidity Clear Urine pH 7.0 Ur Specific [place] 1.004 Urine Protein <15 mg/dl Urine Glucose (UA) Neg Urine Ketones 20 Urine Blood Mod Urine Nitrite Neg Urine Bilirubin Neg Urine Urobilinogen < 2.0 Ur Leukocyte Esterase Tr Urine WBC (Auto) 3.0 Urine RBC (Auto) < 1.0 U Epithel Cells (Auto) 1.0 Urine Bacteria (Auto) 1+ Blood Type A POSITIVE Antibody Screen Negative 06/16/17 06:53 WBC RBC Hgb Hct MCV MCH MCHC RDW Plt Count Creatinine 0.5 L Estimated GFR > 60 Uric Acid 4.5 AST 14 ALT 9 Lactate Dehydrogenase 143 Urine Color Urine Turbidity Urine pH Ur Specific [place] Urine Protein Urine Glucose (UA) Urine Ketones Urine Blood Urine Nitrite Urine Bilirubin Urine Urobilinogen Ur Leukocyte Esterase Urine WBC (Auto) Urine RBC (Auto) U Epithel Cells (Auto) Urine Bacteria (Auto) Blood Type Antibody Screen
--- NOTE | 2017-06-16 11:59 | Event Note ---
Date: 06/16/17 Pt examined and cx is still at 9.5 cm to ant lip. I d/w position changes and re- evaluations but that if she does not change then she will have a section. Pt agrees with plan of care at this time. There is currently a section in the OR that was scheduled for this provider. Pt will be evaluated after current section and if still no change will proceed with c/s delivery. Cat I tacing at this time.
--- NOTE | 2017-06-16 12:55 | Progress Note ---
Assessment and Plan Explained all findings to pt and family. Will continue Freq position chges Category 1 strip. aware Subjective - Subjective Date of service: 06/16/17 (pt resting) Interval history: EDC Confirmation: 06/20/2017 Gestational Age: 7 5/7 weeks Past History : 1 Past Medical History: ovarian cyst Past Surgical History: Reviewed history from 01/05/2009 and no changes required: negative Past Medical History Anesthesia Complications: negative Anemia: negative Autoimmune Disorder: negative Bleeding Disorder: negative Blood Transfusions: negative Breast Disease: negative Diabetes: negative Heart Disease: negative Hypertension: negative Hepatitis/Liver Disease: negative Kidney Disease/UTI: negative Neurologic/Epilepsy/Migraines: negative Phlebitis/Varicosities: negative Psychiatric: negative Pulmonary Disease/Asthma: negative Thyroid Disease: negative Hospitalizations: negative Surgery (Non-brick tender): negative Abnormal PAP: negative AMANUEL Exposure: negative Infertility: negative Uterine Anomaly: negative Uterine Surgery (not C/S): negative Other Gynecologic Problems: negative Social Hx: Patient is single Smoking History: Patient currently smokes every day. Infection History Hx of STD: chlamydia HIV Risk Eval: no Hepatitis B Risk Eval: low risk Personal hx. of genital herpes: no Partner hx. of genital herpes: no Rash, Viral, or Febrile illness since last LMP? no Varicella/Chicken Pox Status: Immunized TB Risk: no Genetic History Congenital Heart Defect: Mom: no Dad: no Po Disease: Mom: no Dad: no Thalassemia Mom: no Dad: no Neural Tube Defect Mom: no Dad: no Down's Syndrome Mom: no Dad: no Adolph-Sachs Mom: no Dad: no Sickle Cell Disease/Trait Mom: no Dad: no Hemophilia Mom: no Dad: no Muscular Dystrophy Mom: no Dad: no Cystic Fibrosis Mom: no Dad: no Dyer Chorea Mom: no Dad: no Mental Retardation Mom: no Dad: no Fragile X Mom: no Dad: no Other Genetic/Chromosomal Disorder Mom: no Dad: no Child w/other defect Mom: no Dad: no Enviromental Exposures Xray Exposure: no Medication, drug, or alcohol use since LMP: no Chemical/Other Exposure: no Exposure to Cat Liter: no Hx of Parvovirus (Fifth Disease): no Occupational Exposure to Children: none FALSECurrent Allergies (reviewed today): No known allergies Laboratory Results Routine Urinalysis Leukocytes: negative Nitrite: negative Urobilinogen: negative Protein: negative Blood: negative Ketone: large (80) Bilirubin: negative Glucose: negative Urine HCG: positive Review of Systems General Denies fever, chills, sweats, anorexia, fatigue, weakness, malaise, weight loss and sleep disorder. Complains of nausea, vomiting and vaginal discharge. Denies headache, swelling of legs, abdominal pain, vaginal bleeding and contractions. Denies vaginal discharge, incontinence, dysuria, hematuria, urinary frequency, amenorrhea, menorrhagia, abnormal vaginal bleeding, pelvic pain, genital sores, decreased libido, painful periods, painful sex, urinary urgency, hot flashes, vaginal dryness, vaginal itching and vaginal odor. CV Denies chest pains, palpitations, syncope, dyspnea on exertion, orthopnea, PND and peripheral edema. Resp Denies cough, dyspnea at rest, excessive sputum, hemoptysis, wheezing and pleurisy. GI Denies nausea, vomiting, diarrhea, constipation, change in bowel habits, abdominal pain, melena, hematochezia, jaundice, gas/bloating, indigestion/ heartburn, dysphagia and odynophagia. Endo Denies cold intolerance, heat intolerance, polydipsia, polyphagia, polyuria and unusual weight change. Breast Denies left breast lump, right breast lump, nipple discharge, bloody discharge from nipple, breast pain, abnormal mammogram and breast enlargement. MS Denies back pain, joint pain, joint swelling, muscle cramps, muscle weakness, stiffness, arthritis, sciatica, restless legs, leg pain at night and leg pain with exertion. Derm Denies rash, itching, dryness and suspicious lesions. Neuro Denies paralysis, paresthesias, headache, seizures, tremors, vertigo, transient blindness, frequent falls, frequent headaches and difficulty walking. Psych Denies depression, anxiety, irritability and mood swings. Eyes Denies blurring, diplopia, irritation, discharge, vision loss, eye pain and photophobia. ENT Denies earache, ear discharge, tinnitus, decreased hearing, nasal congestion, nosebleeds, sore throat and hoarseness. Allergy Denies urticaria, allergic rash, hay fever and recurrent infections. Heme Denies abnormal bruising, bleeding and enlarged lymph nodes. PHYSICAL EXAM HEENT: PERRLA, normal conjunctiva, external nose and nasal mucosa normal, oropharynx clear Neck/Thyroid: supple, thyroid normal Skin no significant abnormal lesions or rashes Chest: respiratory effort normal, clear to auscultation Breasts: normal without skin changes or masses CV: regular, normal S1-S2, no murmur, no rub, no gallop Abdomen: normal bowel sounds, soft, nontender, no HSM Musculoskeletal: grossly normal ROM in joints, no joint tenderness or muscle weakness Neuro: grossly normal DTRs, sensation, strength, cranial nerves Extremities: no clubbing, cyanosis, or edema [employer]ER Exams Vulva/Vagina: No lesions, normal BUS, normal rugae Cervix: No lesions; no cervical motion tenderness Uterus: normal size and position, midline, mobile Fundal Ht: 6-8 Adnexae: no masses or tenderness Rectovaginal: no masses or tenderness Patient reports: movement normal, contractions (pt c/o feeling some pressure) Objective - Vital Signs Vital Signs: Vital Signs - 12hr 06/16/17 06/16/17 06/16/17 01:17 01:20 01:22 Temperature Pulse Rate 77 82 83 Respiratory Rate Blood Pressure 166/98 148/85 O2 Sat by Pulse 98 Oximetry 06/16/17 06/16/17 06/16/17 01:24 01:26 01:32 Temperature 98.5 F Pulse Rate 76 85 Respiratory 22 Rate Blood Pressure O2 Sat by Pulse 98 94 Oximetry 06/16/17 06/16/17 06/16/17 01:36 01:37 01:40 Temperature Pulse Rate 91 H 94 H 83 Respiratory Rate Blood Pressure 144/102 O2 Sat by Pulse 96 83 L Oximetry 06/16/17 06/16/17 06/16/17 01:42 01:47 01:51 Temperature Pulse Rate 81 77 84 Respiratory Rate Blood Pressure O2 Sat by Pulse 96 97 98 Oximetry 06/16/17 06/16/17 06/16/17 01:52 01:53 01:56 Temperature Pulse Rate 80 81 94 H Respiratory Rate Blood Pressure 143/85 O2 Sat by Pulse 92 96 Oximetry 06/16/17 06/16/17 06/16/17 02:02 02:06 02:12 Temperature Pulse Rate 89 90 82 Respiratory Rate Blood Pressure O2 Sat by Pulse 99 97 99 Oximetry 06/16/17 06/16/17 06/16/17 02:17 02:31 02:36 Temperature Pulse Rate 93 H 78 86 Respiratory Rate Blood Pressure O2 Sat by Pulse 100 99 99 Oximetry 06/16/17 06/16/17 06/16/17 02:40 02:41 02:46 Temperature Pulse Rate 83 83 Respiratory 22 Rate Blood Pressure 142/93 O2 Sat by Pulse 100 99 Oximetry 06/16/17 06/16/17 06/16/17 02:48 02:51 02:56 Temperature Pulse Rate 78 69 79 Respiratory Rate Blood Pressure 149/96 O2 Sat by Pulse 99 97 Oximetry 06/16/17 06/16/17 06/16/17 03:01 03:04 03:05 Temperature Pulse Rate 79 73 68 Respiratory Rate Blood Pressure 129/75 O2 Sat by Pulse 97 92 Oximetry 06/16/17 06/16/17 06/16/17 03:06 03:10 03:11 Temperature Pulse Rate 69 68 Respiratory 20 Rate Blood Pressure O2 Sat by Pulse 98 98 Oximetry 06/16/17 06/16/17 06/16/17 03:16 03:18 03:21 Temperature Pulse Rate 66 71 80 Respiratory Rate Blood Pressure 138/84 O2 Sat by Pulse 99 95 Oximetry 06/16/17 06/16/17 06/16/17 03:26 03:31 03:33 Temperature Pulse Rate 78 72 74 Respiratory Rate Blood Pressure 119/74 O2 Sat by Pulse 97 98 Oximetry 06/16/17 06/16/17 06/16/17 03:48 04:04 04:19 Temperature Pulse Rate 69 65 67 Respiratory Rate Blood Pressure 147/97 148/90 174/106 O2 Sat by Pulse Oximetry 06/16/17 06/16/17 06/16/17 04:33 04:41 04:44 Temperature Pulse Rate 83 72 62 Respiratory Rate Blood Pressure 133/96 169/90 150/89 O2 Sat by Pulse Oximetry 06/16/17 06/16/17 06/16/17 04:46 04:48 05:04 Temperature Pulse Rate 63 60 70 Respiratory Rate Blood Pressure 148/68 143/74 150/93 O2 Sat by Pulse Oximetry 06/16/17 06/16/17 06/16/17 05:14 05:48 05:53 Temperature Pulse Rate 71 82 Respiratory 18 Rate Blood Pressure 146/86 148/84 O2 Sat by Pulse Oximetry 06/16/17 06/16/17 06/16/17 06:15 06:27 06:29 Temperature Pulse Rate 81 81 80 Respiratory Rate Blood Pressure 154/82 149/84 137/88 O2 Sat by Pulse Oximetry 06/16/17 06/16/17 06/16/17 06:31 06:32 06:33 Temperature Pulse Rate 79 61 84 Respiratory Rate Blood Pressure 139/70 141/83 O2 Sat by Pulse 100 86 Oximetry 06/16/17 06/16/17 06/16/17 06:35 06:36 06:37 Temperature Pulse Rate 80 76 88 Respiratory Rate Blood Pressure 146/92 150/88 O2 Sat by Pulse 100 Oximetry 06/16/17 06/16/17 06/16/17 06:39 06:41 06:43 Temperature Pulse Rate 105 H 99 H 93 H Respiratory Rate Blood Pressure 155/90 160/84 142/75 O2 Sat by Pulse 99 Oximetry 06/16/17 06/16/17 06/16/17 06:46 06:47 06:49 Temperature Pulse Rate 71 77 Respiratory Rate Blood Pressure 153/94 130/80 O2 Sat by Pulse 72 L 100 Oximetry 06/16/17 06/16/17 06/16/17 06:51 06:52 06:53 Temperature Pulse Rate 81 108 H 99 H Respiratory Rate Blood Pressure 138/81 143/87 O2 Sat by Pulse 100 Oximetry 06/16/17 06/16/17 06/16/17 06:57 06:59 07:01 Temperature Pulse Rate 83 85 94 H Respiratory Rate Blood Pressure 158/88 O2 Sat by Pulse 100 87 Oximetry 06/16/17 06/16/17 06/16/17 07:02 07:07 07:12 Temperature Pulse Rate 99 H 78 81 Respiratory Rate Blood Pressure O2 Sat by Pulse 100 100 100 Oximetry 06/16/17 06/16/17 06/16/17 07:17 07:18 07:22 Temperature Pulse Rate 82 78 99 H Respiratory Rate Blood Pressure 138/81 O2 Sat by Pulse 100 100 Oximetry 06/16/17 06/16/17 06/16/17 07:27 07:32 07:37 Temperature Pulse Rate 78 88 78 Respiratory Rate Blood Pressure 139/87 O2 Sat by Pulse 100 100 99 Oximetry 06/16/17 06/16/17 06/16/17 07:40 07:42 07:46 Temperature Pulse Rate 72 85 85 Respiratory Rate Blood Pressure 144/84 145/79 O2 Sat by Pulse 100 Oximetry 08/06/16/17 06/16/17 07:47 07:52 07:57 Temperature Pulse Rate 84 71 77 Respiratory Rate Blood Pressure O2 Sat by Pulse 100 100 99 Oximetry 06/16/17 06/16/17 06/16/17 08:02 08:03 08:04 Temperature Pulse Rate 77 86 84 Respiratory Rate Blood Pressure 138/99 136/83 O2 Sat by Pulse 100 Oximetry 06/16/17 06/16/17 06/16/17 08:07 08:12 08:17 Temperature Pulse Rate 77 77 92 H Respiratory Rate Blood Pressure O2 Sat by Pulse 99 100 100 Oximetry 06/16/17 06/16/17 06/16/17 08:20 08:22 08:26 Temperature Pulse Rate 86 88 89 Respiratory Rate Blood Pressure 124/72 O2 Sat by Pulse 100 100 Oximetry 06/16/17 06/16/17 06/16/17 08:32 08:37 08:41 Temperature 97.2 F L Pulse Rate 80 68 87 Respiratory 18 Rate Blood Pressure 152/90 136/83 O2 Sat by Pulse 100 100 Oximetry 06/16/17 06/16/17 06/16/17 08:42 08:47 08:51 Temperature Pulse Rate 69 74 104 H Respiratory Rate Blood Pressure 141/84 O2 Sat by Pulse 99 99 Oximetry 06/16/17 06/16/17 06/16/17 08:52 09:05 09:40 Temperature Pulse Rate 92 H 78 73 Respiratory Rate Blood Pressure 123/79 O2 Sat by Pulse 100 99 Oximetry 06/16/17 06/16/17 06/16/17 09:45 09:50 09:55 Temperature Pulse Rate 81 76 66 Respiratory Rate Blood Pressure 161/79 O2 Sat by Pulse 100 100 100 Oximetry 06/16/17 06/16/17 06/16/17 10:00 10:05 10:10 Temperature Pulse Rate 69 71 69 Respiratory Rate Blood Pressure 133/65 O2 Sat by Pulse 100 100 100 Oximetry 06/16/17 06/16/17 06/16/17 10:15 10:20 10:25 Temperature Pulse Rate 72 82 69 Respiratory Rate Blood Pressure O2 Sat by Pulse 100 100 100 Oximetry 06/16/17 06/16/17 06/16/17 10:30 10:35 10:39 Temperature Pulse Rate 71 85 119 H Respiratory Rate Blood Pressure 158/84 O2 Sat by Pulse 100 100 80 L Oximetry 06/16/17 06/16/17 06/16/17 10:40 10:51 11:00 Temperature Pulse Rate 69 69 73 Respiratory Rate Blood Pressure 169/106 171/77 O2 Sat by Pulse 100 Oximetry 06/16/17 06/16/17 06/16/17 11:20 11:55 12:05 Temperature Pulse Rate 66 95 H 68 Respiratory Rate Blood Pressure 160/85 137/75 131/70 O2 Sat by Pulse Oximetry 06/16/17 06/16/17 06/16/17 12:20 12:37 12:39 Temperature Pulse Rate 69 78 88 Respiratory Rate Blood Pressure 149/83 161/84 O2 Sat by Pulse 100 Oximetry 06/16/17 12:45 Temperature Pulse Rate 69 Respiratory Rate Blood Pressure O2 Sat by Pulse 99 Oximetry - Exam Breasts: deferred Cardiovascular: Regular rate Lungs: Normal air movement Abdomen: Present: normal appearance, soft. Absent: distention, tenderness Uterus: Present: normal FHR: auscultation normal, category 1 Uterine Contraction Monitor Mode: External Cervical Dilatation: 9.5 (lip from 12 to 4 thick; not reducible) Cervical Effacement Percentage: 100 station: -1 Uterine Contraction Pattern: Regular Uterine Contraction Intensity: Moderate Extremities: normal Deep Tendon Reflex Grade: Normal +2 - Labs Labs: Abnormal Labs 06/16/17 06:53 Creatinine 0.5 L Laboratory Results - last 24 hr 06/16/17 06/16/17 06/16/17 02:06 02:06 06:50 WBC 8.7 RBC 3.95 Hgb 11.5 Hct 34.6 MCV 88 MCH 29 MCHC 33 RDW 14.2 Plt Count 190 Creatinine Estimated GFR Uric Acid AST ALT Lactate Dehydrogenase Urine Color Straw Urine Turbidity Clear Urine pH 7.0 Ur Specific [place] 1.004 Urine Protein <15 mg/dl Urine Glucose (UA) Neg Urine Ketones 20 Urine Blood Mod Urine Nitrite Neg Urine Bilirubin Neg Urine Urobilinogen < 2.0 Ur Leukocyte Esterase Tr Urine WBC (Auto) 3.0 Urine RBC (Auto) < 1.0 U Epithel Cells (Auto) 1.0 Urine Bacteria (Auto) 1+ Blood Type A POSITIVE Antibody Screen Negative 06/16/17 06:53 WBC RBC Hgb Hct MCV MCH MCHC RDW Plt Count Creatinine 0.5 L Estimated GFR > 60 Uric Acid 4.5 AST 14 ALT 9 Lactate Dehydrogenase 143 Urine Color Urine Turbidity Urine pH Ur Specific [place] Urine Protein Urine Glucose (UA) Urine Ketones Urine Blood Urine Nitrite Urine Bilirubin Urine Urobilinogen Ur Leukocyte Esterase Urine WBC (Auto) Urine RBC (Auto) U Epithel Cells (Auto) Urine Bacteria (Auto) Blood Type Antibody Screen
[2017-06-16] MEDS ORDERED: BICITRA ONE (15:17)
[2017-06-16] MEDS ORDERED: REGLAN ONE (15:17)
[2017-06-16] MEDS ORDERED: PEPCID IV ONE (15:18)
--- NOTE | 2017-06-16 15:59 | Event Note ---
Date: 06/16/17 Pt exam is still unchanged. Will proceed to OR for primary c/s at this time provider at this time awaiting room preparation. All questions were addressed and answered. Consents were signed and placed on the chart.
[2017-06-16] MEDS ORDERED: XYLOCAINE MPF 2% ONE ×4 (16:10→17:04)
--- NOTE | 2017-06-16 16:19 | Progress Note ---
Subjective Date of service: 06/16/17 (!0 cc epidural bolus of 2% MPF lidocaine for pain @ 1610.) Objective - Constitutional Vitals: Vital Signs - 12hr 06/16/17 06/16/17 06/16/17 04:19 04:33 04:41 Temperature Pulse Rate 67 83 72 Respiratory Rate Blood Pressure 174/106 133/96 169/90 O2 Sat by Pulse Oximetry 06/16/17 06/16/17 06/16/17 04:44 04:46 04:48 Temperature Pulse Rate 62 63 60 Respiratory Rate Blood Pressure 150/89 148/68 143/74 O2 Sat by Pulse Oximetry 06/16/17 06/16/17 06/16/17 05:04 05:14 05:48 Temperature Pulse Rate 70 71 82 Respiratory Rate Blood Pressure 150/93 146/86 148/84 O2 Sat by Pulse Oximetry 06/16/17 06/16/17 06/16/17 05:53 06:15 06:27 Temperature Pulse Rate 81 81 Respiratory 18 Rate Blood Pressure 154/82 149/84 O2 Sat by Pulse Oximetry 06/16/17 06/16/17 06/16/17 06:29 06:31 06:32 Temperature Pulse Rate 80 79 61 Respiratory Rate Blood Pressure 137/88 139/70 O2 Sat by Pulse 100 86 Oximetry 06/16/17 06/16/17 06/16/17 06:33 06:35 06:36 Temperature Pulse Rate 84 80 76 Respiratory Rate Blood Pressure 141/83 146/92 O2 Sat by Pulse 100 Oximetry 06/16/17 06/16/17 06/16/17 06:37 06:39 06:41 Temperature Pulse Rate 88 105 H 99 H Respiratory Rate Blood Pressure 150/88 155/90 160/84 O2 Sat by Pulse 99 Oximetry 06/16/17 06/16/17 06/16/17 06:43 06:46 06:47 Temperature Pulse Rate 93 H 71 Respiratory Rate Blood Pressure 142/75 153/94 O2 Sat by Pulse 72 L 100 Oximetry 06/16/17 06/16/17 06/16/17 06:49 06:51 06:52 Temperature Pulse Rate 77 81 108 H Respiratory Rate Blood Pressure 130/80 138/81 O2 Sat by Pulse 100 Oximetry 06/16/17 06/16/17 06/16/17 06:53 06:57 06:59 Temperature Pulse Rate 99 H 83 85 Respiratory Rate Blood Pressure 143/87 158/88 O2 Sat by Pulse 100 Oximetry 06/16/17 06/16/17 06/16/17 07:01 07:02 07:07 Temperature Pulse Rate 94 H 99 H 78 Respiratory Rate Blood Pressure O2 Sat by Pulse 87 100 100 Oximetry 06/16/17 06/16/17 06/16/17 07:12 07:17 07:18 Temperature Pulse Rate 81 82 78 Respiratory Rate Blood Pressure 138/81 O2 Sat by Pulse 100 100 Oximetry 06/16/17 06/16/17 06/16/17 07:22 07:27 07:32 Temperature Pulse Rate 99 H 78 88 Respiratory Rate Blood Pressure 139/87 O2 Sat by Pulse 100 100 100 Oximetry 06/16/17 06/16/17 06/16/17 07:37 07:40 07:42 Temperature Pulse Rate 78 72 85 Respiratory Rate Blood Pressure 144/84 O2 Sat by Pulse 99 100 Oximetry 06/16/17 06/16/17 06/16/17 07:46 07:47 07:52 Temperature Pulse Rate 85 84 71 Respiratory Rate Blood Pressure 145/79 O2 Sat by Pulse 100 100 Oximetry 06/16/17 06/16/17 06/16/17 07:57 08:02 08:03 Temperature Pulse Rate 77 77 86 Respiratory Rate Blood Pressure 138/99 O2 Sat by Pulse 99 100 Oximetry 06/16/17 06/16/17 06/16/17 08:04 08:07 08:12 Temperature Pulse Rate 84 77 77 Respiratory Rate Blood Pressure 136/83 O2 Sat by Pulse 99 100 Oximetry 06/16/17 06/16/17 06/16/17 08:17 08:20 08:22 Temperature Pulse Rate 92 H 86 88 Respiratory Rate Blood Pressure 124/72 O2 Sat by Pulse 100 100 Oximetry 06/16/17 06/16/17 06/16/17 08:26 08:32 08:37 Temperature Pulse Rate 89 80 68 Respiratory Rate Blood Pressure 152/90 O2 Sat by Pulse 100 100 100 Oximetry 06/16/17 06/16/17 06/16/17 08:41 08:42 08:47 Temperature 97.2 F L Pulse Rate 87 69 74 Respiratory 18 Rate Blood Pressure 136/83 O2 Sat by Pulse 99 99 Oximetry 06/16/17 06/16/17 06/16/17 08:51 08:52 09:05 Temperature Pulse Rate 104 H 92 H 78 Respiratory Rate Blood Pressure 141/84 123/79 O2 Sat by Pulse 100 Oximetry 06/16/17 06/16/17 06/16/17 09:40 09:45 09:50 Temperature Pulse Rate 73 81 76 Respiratory Rate Blood Pressure 161/79 O2 Sat by Pulse 99 100 100 Oximetry 06/16/17 06/16/17 06/16/17 09:55 10:00 10:05 Temperature Pulse Rate 66 69 71 Respiratory Rate Blood Pressure 133/65 O2 Sat by Pulse 100 100 100 Oximetry 06/16/17 06/16/17 06/16/17 10:10 10:15 10:20 Temperature Pulse Rate 69 72 82 Respiratory Rate Blood Pressure O2 Sat by Pulse 100 100 100 Oximetry 06/16/17 06/16/17 06/16/17 10:25 10:30 10:35 Temperature Pulse Rate 69 71 85 Respiratory Rate Blood Pressure 158/84 O2 Sat by Pulse 100 100 100 Oximetry 06/16/17 06/16/17 06/16/17 10:39 10:40 10:51 Temperature Pulse Rate 119 H 69 69 Respiratory Rate Blood Pressure 169/106 O2 Sat by Pulse 80 L 100 Oximetry 06/16/17 06/16/17 06/16/17 11:00 11:20 11:55 Temperature Pulse Rate 73 66 95 H Respiratory Rate Blood Pressure 171/77 160/85 137/75 O2 Sat by Pulse Oximetry 06/16/17 06/16/17 06/16/17 12:05 12:20 12:37 Temperature Pulse Rate 68 69 78 Respiratory Rate Blood Pressure 131/70 149/83 161/84 O2 Sat by Pulse Oximetry 06/16/17 06/16/17 06/16/17 12:39 12:45 12:50 Temperature Pulse Rate 88 69 60 Respiratory Rate Blood Pressure 176/85 O2 Sat by Pulse 100 99 100 Oximetry 06/16/17 06/16/17 06/16/17 12:55 13:00 13:01 Temperature Pulse Rate 67 76 77 Respiratory Rate Blood Pressure 193/87 150/71 O2 Sat by Pulse 99 99 Oximetry 06/16/17 06/16/17 06/16/17 13:05 13:06 13:10 Temperature Pulse Rate 88 76 71 Respiratory Rate Blood Pressure 174/79 O2 Sat by Pulse 97 100 Oximetry 06/16/17 06/16/17 06/16/17 13:15 13:20 13:21 Temperature Pulse Rate 70 71 67 Respiratory Rate Blood Pressure 162/75 O2 Sat by Pulse 99 99 Oximetry 06/16/17 06/16/17 06/16/17 13:25 13:30 13:35 Temperature Pulse Rate 71 73 74 Respiratory Rate Blood Pressure O2 Sat by Pulse 98 100 99 Oximetry 06/16/17 06/16/17 06/16/17 13:36 13:40 13:45 Temperature Pulse Rate 86 138 H 104 H Respiratory Rate Blood Pressure 131/97 O2 Sat by Pulse 99 98 Oximetry 06/16/17 06/16/17 06/16/17 13:50 13:55 13:59 Temperature Pulse Rate 87 69 104 H Respiratory Rate Blood Pressure 162/93 O2 Sat by Pulse 99 100 99 Oximetry 06/16/17 06/16/17 06/16/17 14:04 14:06 14:08 Temperature Pulse Rate 88 93 H 85 Respiratory Rate Blood Pressure 180/83 153/78 O2 Sat by Pulse 99 Oximetry 06/16/17 06/16/17 06/16/17 14:10 14:15 14:20 Temperature Pulse Rate 75 95 H 76 Respiratory Rate Blood Pressure O2 Sat by Pulse 99 99 98 Oximetry 06/16/17 06/16/17 06/16/17 14:21 14:25 14:30 Temperature Pulse Rate 71 77 80 Respiratory Rate Blood Pressure 174/87 O2 Sat by Pulse 99 99 Oximetry 06/16/17 06/16/17 06/16/17 14:35 14:40 14:45 Temperature Pulse Rate 91 H 75 82 Respiratory Rate Blood Pressure 150/88 O2 Sat by Pulse 99 98 99 Oximetry 06/16/17 06/16/17 06/16/17 14:49 14:50 14:55 Temperature Pulse Rate 81 83 82 Respiratory Rate Blood Pressure 149/84 O2 Sat by Pulse 99 99 Oximetry 06/16/17 06/16/17 06/16/17 15:00 15:04 15:05 Temperature Pulse Rate 80 91 H 89 Respiratory Rate Blood Pressure 150/93 O2 Sat by Pulse 99 100 Oximetry 06/16/17 06/16/17 06/16/17 15:09 15:14 15:19 Temperature Pulse Rate 79 92 H 73 Respiratory Rate Blood Pressure O2 Sat by Pulse 99 100 99 Oximetry 06/16/17 06/16/17 06/16/17 15:21 15:25 15:30 Temperature Pulse Rate 74 74 80 Respiratory Rate Blood Pressure 147/75 O2 Sat by Pulse 99 98 Oximetry 06/16/17 15:34 Temperature Pulse Rate 92 H Respiratory Rate Blood Pressure O2 Sat by Pulse 99 Oximetry - Labs CBC & Chem 7: 06/16/17 02:06 06/16/17 06:53 Labs: Abnormal lab results 06/16/17 Range/Units 06:53 Creatinine 0.5 L (0.7-1.2) mg/dL
[2017-06-16] MEDS ORDERED: NACL 0.9% IR ONE (16:56)
[2017-06-16] MEDS ORDERED: WATER FOR IRRIG STERILE IR ONE (16:56)
[2017-06-16] MEDS ORDERED: SUBLIMAZE ONE (17:07)
[2017-06-16] MEDS ORDERED: NARCAN 2 MG/2 ML ONE (17:11)
[2017-06-16] MEDS ORDERED: METHERGINE IM ONE (17:13)
[2017-06-16] MEDS ORDERED: ZOFRAN ONE (17:16)
[2017-06-16] MEDS ORDERED: VERSED ONE (17:25)
[2017-06-16] MEDS ORDERED: TUCKS PAD TP PRN (17:41)
[2017-06-16] MEDS ORDERED: LANSINOH TP PRN (17:41)
[2017-06-16] MEDS ORDERED: MYLICON PO PRN (17:41)
--- NOTE | 2017-06-16 17:49 | Operative Report ---
Operative Report Operative Report: Date of procedure: 06/16/2070 Pre-operative diagnosis: 39 weeks gestation Failure to progress Post-operative diagnosis: Same Procedure name(s): Primary low transverse section via Pfannenstiel skin incision Surgeon: Dr. Duval Bench Assembler: Ms. Jen Muñoz Anesthesia: Epidural EBL: 600 mL Urine output: 200 mL of clear urine at end of the procedure Fluids: 1 L Findings: Liveborn female 7 lbs. 5 oz. Apgars of 8 and 9 at one and 5 minutes Normal fallopian tubes and ovaries bilaterally Infant noted to be febrile upon delivery via patient did not have documented temperature prior to section or while in labor. Indications: Patient presents with spontaneous rupture membranes patient underwent Pitocin augmentation of labor. Patient progressed to 9 cm related and cervical exam remained unchanged for several hours despite change in position and adjusting Pitocin. Decision was made to proceed with primary section. All risk benefits and alternatives were discussed with patient and family. Patient was given ample time to ask questions. Consents were signed and placed on the chart. Procedure: Patient was taking to the operating room. Patient was then prepped and draped in sterile fashion after anesthesia was found to be adequate. A low transverse skin incision was made with the scalpel and carried down to the underlying layer of fascia with the Bovie. The fascia was then incised in the midline and this incision was extended bilaterally with the Bovie. The superior aspect of the fascia was grasped with Rachid clamps tented upward and dissected off of the anterior rectus muscles with the scalpel. In similar fashion the inferior aspect of the fascia was grasped with Rachid clamps tented upward and dissected off of the anterior rectus muscles. The rectus muscles were then bluntly divided in the midline. The peritoneum was identified and entered into sharply. The bladder blade was placed. A lower transverse uterine incision was made with the scalpel and extended bilaterally with the bandage scissors. Artificial rupture of membranes was performed yielding clear amniotic fluid. The 's head was then delivered atraumatically. The anterior shoulder and rest of delivered without difficulty. The umbilical cord was clamped x2. The cord was cut. The was then placed in sterile bassinet. The cord blood was not collected. The placenta was manually extracted in its entirety. The uterus was exteriorized and cleared of all clots and debris. The uterine incision was closed using 0 Vicryl in a running locking fashion. A second imbricating layer of the same suture was then created. The posterior cul-de-sac was copiously irrigated. The uterus was returned to the abdomen. The gutters were also irrigated. The anterior rectus muscles were reapproximated using 3-0 Vicryl. The anterior rectus fascia was reapproximated using 0 Vicryl in a running fashion. The subcuticular fat was reapproximated using 2-0 Vicryl in a running fashion. The skin was reapproximated with 4-0 Monocryl in a subcutaneous stitch. The patient tolerated the procedure well. Sponge lap and needle counts were all correct x3. Patient was taken to the recovery room awake and in stable condition.
[2017-06-16] MEDS ORDERED: MORPHINE PCA 30MG/30ML IV SCH (18:00)
[2017-06-16] MEDS ORDERED: ANCEF/NS 1 GM/50 ML 1 GM/50 ML BAG IV SCH (18:00)
[2017-06-16] MEDS ORDERED: D5LR 1,000 ML IV SCH (18:00)
--- NOTE | 2017-06-16 18:01 | Post Anesthesia Evaluation ---
- Post Anesthesia Evaluation Patient Participated: Yes Airway Patent: Yes Stable Respiratory Function: Yes Nausea/Vomiting: No Temp > 96.8F: Yes Pain Manageable: Yes Adequeate Hydration: Yes Anesthesia Complications: No Block Receding Appropriately: Yes Patient on Ventilator: No
[2017-06-16] MEDS: TORADOL IV PRN (18:18)
[2017-06-17] MEDS: ANCEF/NS 1 GM/50 ML 1 GM/50 ML BAG IV SCH ×2 (01:31→09:30)
[2017-06-17] MEDS: TORADOL IV PRN (05:37)
--- NOTE | 2017-06-17 07:24 | Progress Note ---
Assessment and Plan Patient doing well, no complaints; Lochia scant, dressing removed, incision D&I , H&H 06/27 (anemia d/t acute blood loss from surgery, asymptomatic - rx FE BID) AF, bp 130-140/70-80's (denies AKBAR, visual changes or epigastric pain.) Continue postop pathway. - Patient Problems (1) delivery delivered Current Visit: Yes Status: Acute (2) Anemia due to blood loss, acute Current Visit: Yes Status: Acute Subjective - Subjective Date of service: 06/17/17 Principal diagnosis: Postop day #1 s/p primary c/s Patient reports: appetite normal, voiding normally, pain well controlled, ambulating normally, no dizzy ambulation, no flatus, no nauseated Chadron: doing well, bottle feeding Objective - Vital Signs Latest vital signs: Vital Signs Temp Pulse Resp BP Pulse Ox 06/17/17 06:11 98.8 F 89 18 144/76 06/17/17 01:45 98.9 F 89 18 136/80 06/16/17 20:12 98.7 F 98 H 16 144/85 06/16/17 19:26 98.6 F 102 H 17 131/80 100 06/16/17 19:02 100.1 F H 102 H 17 129/84 100 06/16/17 18:42 102 H 17 137/87 100 06/16/17 18:28 107 H 19 134/88 100 06/16/17 18:13 101 H 19 156/99 100 06/16/17 18:02 108 H 19 143/93 100 06/16/17 17:57 101 H 19 150/91 100 06/16/17 17:52 100 H 22 153/95 100 06/16/17 17:47 100.5 F H 107 H 20 147/87 100 06/16/17 15:34 92 H 99 06/16/17 15:30 80 98 06/16/17 15:25 74 99 06/16/17 15:21 74 147/75 06/16/17 15:19 73 99 06/16/17 15:14 92 H 100 06/16/17 15:09 79 99 06/16/17 15:05 89 150/93 06/16/17 15:04 91 H 100 06/16/17 15:00 80 99 06/16/17 14:55 82 99 06/16/17 14:50 83 149/84 06/16/17 14:49 81 99 06/16/17 14:45 82 99 06/16/17 14:40 75 98 06/16/17 14:35 91 H 150/88 99 06/16/17 14:30 80 99 06/16/17 14:25 77 99 06/16/17 14:21 71 174/87 06/16/17 14:20 76 98 06/16/17 14:15 95 H 99 06/16/17 14:10 75 99 06/16/17 14:08 85 153/78 06/16/17 14:06 93 H 180/83 06/16/17 14:04 88 99 06/16/17 13:59 104 H 99 06/16/17 13:55 69 100 06/16/17 13:50 87 162/93 99 06/16/17 13:45 104 H 98 06/16/17 13:40 138 H 99 06/16/17 13:36 86 131/97 06/16/17 13:35 74 99 06/16/17 13:30 73 100 06/16/17 13:25 71 98 06/16/17 13:21 67 162/75 06/16/17 13:20 71 99 06/16/17 13:15 70 99 06/16/17 13:10 71 100 06/16/17 13:06 76 174/79 06/16/17 13:05 88 97 06/16/17 13:01 77 150/71 06/16/17 13:00 76 193/87 99 06/16/17 12:55 67 99 06/16/17 12:50 60 176/85 100 06/16/17 12:45 69 99 06/16/17 12:39 88 100 06/16/17 12:37 78 161/84 06/16/17 12:20 69 149/83 06/16/17 12:05 68 131/70 06/16/17 11:55 95 H 137/75 06/16/17 11:20 66 160/85 06/16/17 11:00 73 171/77 06/16/17 10:51 69 169/106 06/16/17 10:40 69 100 06/16/17 10:39 119 H 80 L 06/16/17 10:35 85 158/84 100 06/16/17 10:30 71 100 06/16/17 10:25 69 100 06/16/17 10:20 82 100 06/16/17 10:15 72 100 06/16/17 10:10 69 100 06/16/17 10:05 71 133/65 100 06/16/17 10:00 69 100 06/16/17 09:55 66 100 06/16/17 09:50 76 161/79 100 06/16/17 09:45 81 100 06/16/17 09:40 73 99 06/16/17 09:05 78 123/79 06/16/17 08:52 92 H 100 06/16/17 08:51 104 H 141/84 06/16/17 08:47 74 99 06/16/17 08:42 69 99 06/16/17 08:41 97.2 F L 87 18 136/83 06/16/17 08:37 68 152/90 100 06/16/17 08:32 80 100 06/16/17 08:26 89 100 06/16/17 08:22 88 100 06/16/17 08:20 86 124/72 06/16/17 08:17 92 H 100 06/16/17 08:12 77 100 06/16/17 08:07 77 99 06/16/17 08:04 84 136/83 06/16/17 08:03 86 138/99 06/16/17 08:02 77 100 06/16/17 07:57 77 99 06/16/17 07:52 71 100 06/16/17 07:47 84 100 06/16/17 07:46 85 145/79 06/16/17 07:42 85 100 06/16/17 07:40 72 144/84 06/16/17 07:37 78 99 06/16/17 07:32 88 139/87 100 06/16/17 07:27 78 100 Intake and Output 06/16/17 06/17/17 06/17/17 22:59 06:59 14:59 Intake Total 1195 1240 Output Total 1000 1500 Balance 195 -260 Intake: IV 1075 1000 D5lr 1,000 ml @ 125 mls/ 625 hr IV DIRECT WINNIE Rx#: [id number] PITOCin/NS 20 UNIT/1000ML 375 325 DRIP 20 units In 1,000 ml @ 125 mls/hr IV DIRECT WINNIE Rx#:[id number] fentaNYL-BUPIV 2 MCG/ML-0 50 .125% 200 mcg In 100 ml @ 8 mls/hr EPIDURAL TITR WINNIE Rx#:[id number] Oral 240 Intake, Free Water 120 Output: Urine 1000 1500 Indwelling Catheter 1500 Other: Total, Intake Amount 240 Total, Output Amount 1500 # Voids Void 1 Estimated Blood Loss 600 - Exam Breasts: Present: normal Cardiovascular: Present: Regular rate Lungs: Present: Clear to auscultation, Normal air movement Abdomen: Present: normal appearance, soft Vulva: both: normal Uterus: Present: normal, firm, fundal height at umbilicus Extremities: Present: normal Deep Tendon Reflex Grade: Normal +2 Incision: Present: normal, dry, intact - Labs Labs: Abnormal lab results 06/16/17 06/17/17 Range/Units 06:53 04:59 Hgb 8.0 L D (10.1-14.3) gm/dl Hct 25.0 L D (30.3-42.9) % Creatinine 0.5 L (0.7-1.2) mg/dL
--- NOTE | 2017-06-17 08:31 | Progress Note ---
Subjective Date of service: 06/17/17 Principal diagnosis: Postop day #1 s/p primary c/s Interval history: 1st POD after Patient is in the bed, comfortable. Pain is well controlled with pain meds. Ambulated well. No residual neurological deficit. No pruritus. No anesthesia complications Objective - Constitutional Vitals: Vital Signs - 12hr 06/17/17 06/17/17 06/17/17 01:45 06:11 07:50 Temperature 98.9 F 98.8 F 98.1 F Pulse Rate 89 89 76 Respiratory 18 18 18 Rate Blood Pressure 136/80 144/76 132/72 - Labs CBC & Chem 7: 06/17/17 04:59 06/16/17 06:53 Labs: Abnormal lab results 06/17/17 Range/Units 04:59 Hgb 8.0 L D (10.1-14.3) gm/dl Hct 25.0 L D (30.3-42.9) %
[2017-06-17] MEDS: FEOSOL PO SCH ×2 (09:29→22:24)
[2017-06-17] MEDS: COLACE PO SCH ×2 (09:29→22:22)
[2017-06-17] MEDS: NORCO 5/325 PO PRN (15:09)
[2017-06-17] MEDS: MOTRIN PO PRN (15:10)
[2017-06-17] MEDS ORDERED: BOOSTRIX IM ONE (17:43)
[2017-06-18] MEDS: MOTRIN PO PRN ×2 (00:32→10:25)
--- NOTE | 2017-06-18 06:39 | Discharge Summary ---
Providers - Providers Date of Admission: 06/16/17 02:13 Date of discharge: 06/18/17 (pt req d/c today if possible) Attending physician: CORY LY Primary care physician: CORY LY Hospitalization Reason for admission: active labor Delivery: Procedure: primary low transverse Episiotomy: none Laceration: none Incision: dry, intact Other procedures: none complications: none Discharge diagnosis: IUP at term delivered baby: female Hospital course: uncomplicated section due to arrest of dilatation Pt w/o complaint BP 140/80-70 Pt had some elevated BP while in labor PreE labs wnl Pt denies AKBAR, blurred vision, chest pain. FF below umb Lochia scant H&H drop r/t blood loss from surgery Pt is w/o symptoms RX po iron provided. Doing well s/o c/s P: d/c today with instructions RTO 1 week postoperative care. Condition at discharge: Good Disposition: DC-01 TO HOME OR SELFCARE - Discharge Diagnoses (1) delivery delivered Status: Acute Comment: rto 1 week postop care Plan - Discharge Medications Prescriptions: Docusate Sodium [Colace] 100 mg PO BID PRN #30 capsule PRN Reason: Constipation Ibuprofen [Motrin 800 MG tab] 800 mg PO Q8HR PRN #30 tablet PRN Reason: Pain oxyCODONE /ACETAMINOPHEN [Percocet 5/325] 1 tab PO Q4HR #30 tab - Provider Discharge Summary Activity: routine, no sex for 6 weeks, no heavy lifting 4 weeks, no strenuous exercise Diet: routine Instructions: routine Additional instructions: [] Smoking cessation referral if applicable(refer to patient education folder for contact #) [] Refer to [facility] Booklet Call your doctor immediately for: * Fever > 100.5 * Heavy vaginal bleeding ( >1 pad per hour) * Severe persistent headache * Shortness of breath * Reddened, hot, painful area to leg or breast * Drainage or odor from incision. * Keep incision clean and dry at all times and follow doctor's instructions regarding bathing/showering - Follow up plan Follow up: CORY LY MD [Primary Care Provider] - 7 Days (Congratulations! Please call [phone] to schedule your postoperative visit in 1 week. Call with headache, unrelieved with Tylenol, blurred vision, chest pain. Take medications as prescribed. Call with concerns. )
[2017-06-18] MEDS: FEOSOL PO SCH ×2 (10:00)
[2017-06-18] MEDS: COLACE PO SCH (10:00)
[2017-06-18] MEDS: NORCO 5/325 PO PRN (10:25)
[2017-06-18 15:48] VITALS: BP 116/84
== END 2017-06-18 13:27 | disposition home or self-care (01) | DRG 765 ==
LOC: TRG 01:16 → LD 02:13 → OB 19:20
PROVIDERS: ADMIT Obstetrics & Gynecology; ATTEND Obstetrics & Gynecology
PROC: 10D00Z1 Extraction of Products of Conception, Low, Open Approach (ICD-10-PCS; principal; 2017-06-16)
DX: O62.0 Primary inadequate contractions (principal); D62 Acute posthemorrhagic anemia; O99.334 Smoking (tobacco) complicating childbirth; F17.200 Nicotine dependence, unspecified, uncomplicated; O99.03 Anemia complicating the puerperium; Z3A.39 39 weeks gestation of pregnancy; Z37.0 Single live birth
CPT/HCPCS: 36415; 81001; 82565; 83615; 84450; 84460; 84550; 85014; 85018; 85027; 86850; 86900; 86901; 88307; J0595; J0690; J1885; J2210; J2250; J2270; J2310; J2405; J2590; J2765; J3010; J7120; J7121

== ENCOUNTER 2022-05-18 13:03 | Emergency (ER) | payer MEDICAID ==
[2022-05-18 13:53] VITALS: BP 112/78
== END 2022-05-19 17:10 | disposition left against medical advice (07) ==
LOC: ED 13:03
DX: Z04.1 Encounter for examination and observation following transport accident (principal); Z53.21 Procedure and treatment not carried out due to patient leaving prior to being seen by health care provider; V89.2XXA Person injured in unspecified motor-vehicle accident, traffic, initial encounter; Y93.89 Activity, other specified; Y92.89 Other specified places as the place of occurrence of the external cause; Y99.8 Other external cause status